=== PATIENT | female | born 1970 | race Caucasian/White ===

== ENCOUNTER 2016-06-29 14:42 | Emergency (ER) | payer OTHER ==
[2016-06-29 15:11] VITALS: BP 124/59
--- NOTE | 2016-06-29 15:58 | UC ---
Respiratory Complaint HPI - HPI Summary HPI Summary: The patient comes in today for: 1. Sore throat, cough, chest congestion, stuffy nose, Onset: 9 days ago. Palliative/provocative: Nothing. Quality: scratchy, raw. Region: posterior pharynx. Severity: 5/10 Time: cough comes and goes. Associated symptoms: Cough: Very little Yellow material. Wheezing: "little bit." Chest pain: ONly present with a cough. Dyspnea: Only with coughing or shortly thereafter. Nocturnal: sometimes. Rhinitis: "a little" dark yellow Frontal sinus pressure: Present. Fevers: No temperature taken. Inhalers: albuterol. * - History of Current Complaint Chief Complaint: UCGeneralIllness Stated Complaint: CONGESTION,SORE THROAT Time Seen by Provider: 06/29/16 15:52 Hx Obtained From: Patient - Allergies/Home Medications Allergies/Adverse Reactions: Allergies Allergy/AdvReac Type Severity Reaction Status Date / Time Bee Venom Allergy Severe Anaphylatic Verified 06/29/16 15:11 Shock Morphine Allergy Intermediate Nausea And Verified 06/29/16 15:11 Vomiting PMH/Surg Hx/FS Hx/Imm Hx Previously Healthy: No - Premarin s/p hyst. Endocrine History Of: Reports: Dyslipidemia Denies: Diabetes, Thyroid Disease, Hyperthyroidism, Hypothyroidism Cardiovascular History Of: Denies: Cardiac Disorders, Hypertension, Pacemaker/ICD, Myocardial Infarction , Congestive Heart Failure, Atrial Fibrillation, Deep Vein Thrombosis, Bleeding Disorders Respiratory History Of: Denies: COPD, Asthma, Bronchitis, Pneumonia, Pulmonary Embolism GI/ History Of: Denies: Gastroesophageal Reflux, Ulcer, Gastrointestinal Bleed, Gall Bladder Disease, Kidney Stones, Diverticulitis, Renal Disease, Urosepsis Neurological History Of: Reports: Migraine - LAST ONE A YR AGO Denies: TIA, CVA, Dementia, Seizures Psychological History Of: Denies: Anxiety, Depression, Bipolar Disorder, Schizophrenia, Post Traumatic Stress Disorder Cancer History Of: Denies: Lung Cancer, Colorectal Cancer, Breast Cancer, Cervical Cancer Other History Of: Negative For: HIV, Hepatitis B, Hepatitis C, Anticoagulant Therapy - Surgical History Surgical History: Yes Surgery Procedure, Year, and Place: Hysterectomy 2006; CYSTECTOMIES PRIOR TO HYSTERECTOMY; C SECTION; MANY FEMALE SURGERIES PRIOR TO HYSTERECTOMY09/15 LEFT FOOT TARSAL TUNNEL SURGERY; trial dorsal column stimulator - Family History Known Family History: Positive: Cardiac Disease, Hypertension, Diabetes - Social History Occupation: Unemployed, Disabled - RSD of the left leg. Alcohol Use: None Substance Use Type: None Substance Use Comment - Amount & Last Used: deborahco Smoking Status (MU): Former Smoker Type: Cigarettes Amount Used/How Often: 1 PACK/DAY Length of Time of Smoking/Using Tobacco: 25 YRS Have You Smoked in the Last Year: No When Did the Patient Quit Smoking/Using Tobacco: Oct Review of Systems Constitutional: Negative Skin: Negative Eyes: Negative ENT: Sore Throat, Nasal Discharge Respiratory: Cough Cardiovascular: Chest Pain Gastrointestinal: Negative Genitourinary: Negative All Other Systems Reviewed And Are Negative: Yes Physical Exam Triage Information Reviewed: Yes Appearance: Well-Appearing, No Pain Distress, Well-Nourished, Other: - She had a frequent dry cough during the exam--worse with a deep breath. Vital Signs: Initial Vital Signs Temp 97.9 F 06/29/16 15:07 Pulse 78 06/29/16 15:07 Resp 18 06/29/16 15:07 BP 124/59 06/29/16 15:07 Pulse Ox 100 06/29/16 15:07 Vital Signs Reviewed: Yes Eyes: Positive: Conjunctiva Clear. Negative: Discharge ENT: Positive: Hearing grossly normal. Negative: Pharyngeal erythema, Nasal congestion, Nasal drainage, TM bulging, TM dull, TM red, Tonsillar swelling, Tonsillar exudate Dental: Negative: Gross Decay/Caries @, Dental Fracture @ Neck: Positive: Supple, Nontender, No Lymphadenopathy. Negative: Nuchal Rigidity Respiratory: Positive: Lungs clear, No respiratory distress, No accessory muscle use. Negative: Crackles, Wheezing Cardiovascular: Positive: RRR, No Murmur Abdomen Description: Positive: Nontender, No Organomegaly, Soft. Negative: Distended, Guarding Musculoskeletal: Positive: Strength Intact, ROM Intact, No Edema Neurological: Positive: Alert, Muscle Tone Normal Psychological: Positive: Age Appropriate Behavior, Consolable Skin: Negative: rashes, breakdown UC Diagnostic Evaluation - Laboratory O2 Sat by Pulse Oximetry: 100 Diagnostic Studies Comment: Strept test: (-) Respiratory Course/Dx - Differential Dx/Diagnosis Differential Diagnosis/HQI/PQRI: Asthma, Bronchitis, Sinusitis Provider Diagnoses: Bronchitis. Sinusitis. Cough variant/post infectious cough Discharge - Discharge Plan Condition: Stable Disposition: HOME
== END 2016-06-29 17:38 | disposition home or self-care (01) ==
LOC: UCCORT 14:42
DX: J40 Bronchitis, not specified as acute or chronic (principal); J32.9 Chronic sinusitis, unspecified; Z88.5 Allergy status to narcotic agent; E78.5 Hyperlipidemia, unspecified; G43.909 Migraine, unspecified, not intractable, without status migrainosus; Z90.710 Acquired absence of both cervix and uterus; Z90.49 Acquired absence of other specified parts of digestive tract; Z87.891 Personal history of nicotine dependence
CPT/HCPCS: 87651; 99212; G0463

== ENCOUNTER 2017-06-30 15:45 | Emergency (ER) | payer OTHER ==
[2017-06-30 17:52] VITALS: BP 131/68
[2017-06-30] MEDS ORDERED: Ketorolac INJ* 60 MG/2 ML VIAL IM ONE (17:56)
--- NOTE | 2017-06-30 17:56 | UC ---
Headache HPI - HPI Summary HPI Summary: c/o head ache for 3 days sees a neurologist and usually takes ketorolac po but she is out of medicine - History Of Current Complaint Chief Complaint: Radha Stated Complaint: MIGRAINE FOR 3 DAYS Time Seen by Provider: 06/30/17 17:54 Hx Obtained From: Patient ?: Yes Onset/Duration: Gradual Onset, Lasting Days - 3 Pain Intensity: 10 Pain Scale Used: 0-10 Numeric Timing: Constant Character: Typical Headache, Migraine Location of Headache: Diffuse Aggravating Factor(s): Nothing Allevating Factor(s): Nothing Associated Signs And Symptoms: Positive: Negative - Allergies/Home Medications Allergies/Adverse Reactions: Allergies Allergy/AdvReac Type Severity Reaction Status Date / Time bee venom protein (honey bee) Allergy Severe Anaphylatic Verified 06/30/17 17:46 Shock morphine Allergy Intermediate Nausea And Verified 06/30/17 17:46 Vomiting PMH/Surg Hx/FS Hx/Imm Hx Neurological History: Migraine Other History Of: Negative For: HIV, Hepatitis B, Hepatitis C, Anticoagulant Therapy - Surgical History Surgical History: Yes Surgery Procedure, Year, and Place: Hysterectomy 2006; CYSTECTOMIES PRIOR TO HYSTERECTOMY; C SECTION; MANY FEMALE SURGERIES PRIOR TO HYSTERECTOMY09/15 LEFT FOOT TARSAL TUNNEL SURGERY; trial dorsal column stimulator - Family History Known Family History: Positive: Cardiac Disease, Hypertension, Diabetes - Social History Occupation: Disabled Lives: With Family Alcohol Use: None Substance Use Type: None Substance Use Comment - Amount & Last Used: stephanie Smoking Status (MU): Former Smoker Type: Cigarettes Amount Used/How Often: 1 PACK/DAY Length of Time of Smoking/Using Tobacco: 25 YRS Have You Smoked in the Last Year: No When Did the Patient Quit Smoking/Using Tobacco: Oct Review of Systems Constitutional: Negative Skin: Negative Eyes: Negative ENT: Negative Respiratory: Negative Cardiovascular: Negative Gastrointestinal: Negative Genitourinary: Negative Motor: Negative Neurovascular: Negative Musculoskeletal: Negative Neurological: Headache Psychological: Negative Is Patient Immunocompromised?: No All Other Systems Reviewed And Are Negative: Yes Physical Exam Triage Information Reviewed: Yes Appearance: Well-Appearing, Well-Nourished, Pain Distress Vital Signs: Initial Vital Signs Temp 98.4 F 06/30/17 17:41 Pulse 73 06/30/17 17:41 Resp 18 06/30/17 17:41 BP 131/68 06/30/17 17:41 Pulse Ox 99 06/30/17 17:41 Vital Signs Reviewed: Yes Eye Exam: Normal Eyes: Positive: Conjunctiva Clear ENT Exam: Normal ENT: Positive: Normal ENT inspection, Hearing grossly normal. Negative: Trismus , Muffled voice, Hoarse voice, Sinus tenderness Dental Exam: Normal Neck exam: Normal Neck: Positive: Supple, Nontender, No Lymphadenopathy Respiratory Exam: Normal Respiratory: Positive: Chest non-tender, No respiratory distress, No accessory muscle use Cardiovascular Exam: Normal Cardiovascular: Positive: RRR, Pulses Normal, Brisk Capillary Refill Musculoskeletal Exam: Normal Musculoskeletal: Positive: Strength Intact, ROM Intact, No Edema Neurological Exam: Normal Neurological: Positive: Alert, Muscle Tone Normal Psychological Exam: Normal Skin Exam: Normal Re-Evaluation - Re-Evaluation First Eval Change: Improved - felt better after tordal IM---symptoms resolved Headache Course/Dx - Course Course Of Treatment: toradol, rest follow with neurology and pcp - Differential Dx/Diagnosis Provider Diagnoses: resolved headache Discharge - Sign-Out/Discharge Documenting (check all that apply): Discharge/Admit/Transfer - Discharge Plan Condition: Stable Disposition: HOME Prescriptions: Ketorolac TAB * [Toradol TAB *] 10 mg PO Q8HR PRN #15 tab PRN Reason: Headache Patient Education Materials: Migraine Headache (ED) Referrals: Nicolás Rios NP [Primary Care Provider] - 07/03/17 - Billing Disposition and Condition Condition: STABLE Disposition: HOME
== END 2017-06-30 18:56 | disposition home or self-care (01) ==
LOC: UCCORT 15:45
DX: R51 Headache (principal); Z88.5 Allergy status to narcotic agent; Z87.891 Personal history of nicotine dependence
CPT/HCPCS: 96372; 99212; G0463; J1885

== ENCOUNTER 2018-07-07 11:39 | Emergency (ER) | payer OTHER ==
--- OUTSIDE RECORDS SUMMARY | 2018-07-07 11:46 | XMS REPORT | Continuity of Care Document ---
:1970 External Reference #:[id number] Author Name Nicolás Rios N.P. Address [address] [place] [address] Care Team Providers Name Role Phone Nicolás Rios N.P. Care Team Information Electrocardiograph Operator Unavailable Payers Date Identification Numbers Payment Provider Subscriber Policy Number: [id number] [employer] Number: [id number] [address] PayID: [id number] [place] [address] Advance Directives Description No Information Available Problems Active Problems Provider Date Hysterectomy Nicolás Rios, N.PShira Onset: 10/29/2014 Hypercholesterolemia Nicolás Rios, N.P. Onset: 05/18/2016 Sleep apnea Nicolás Rios, N.PShira Onset: 05/18/2016 Chronic back pain Nicolás Rios, N.P. Onset: 02/15/2017 Reflex sympathetic dystrophy of lower Nicolás Rios, N.P. Onset: 2016 extremity Migraine with typical aura Nicolás Rios, N.P. Onset: 07/03/2017 Hypothyroidism Nicolás Rios, N.P. Onset: 06/10/2018 Family History Date Family Member(s) Observation Comments Father Heart Disease triple bypass : (08/29/2013) Father due to [place] Mar 2013, age 71 Document: 08/29/13 - Short Exam-159 Mother Good Health First Son Good Health First Sister Migraine Headache Second Sister Good Health Social History Type Date Description Comments Sex Unknown Marital Status Lives With Son grandclinton (Litzy) Lives With Spouse Occupation fitness teacher Tobacco Use Start: Unknown End: Former Cigarette Smoker 2012 Unknown Tobacco Use Start: Unknown Patient has never smoked Allergies, Adverse Reactions, Alerts Active Allergies Reaction Severity Comments Date Morphine GI 04/02/2006 Medications Active Medications SIG Qnty Indications Ordering Provider Date Levothyroxine Sodium 1 by mouth 30tabs Nicolás Rios, 07/04/2018 50mcg every day N.P. Tablets Atorvastatin Calcium 1 by mouth 90tabs Nicolás Rios, 06/10/2018 10mg every day N.P. Tablets Premarin 1 by mouth 90tabs Nicolás Rios, 07/03/2017 0.625mg Tablets every day N.P. History Medications Levothyroxine Sodium take one tablet 30tabs Gabriel, 06/10/2018 - 25mcg by mouth every Nicolás, N.P. 07/04/2018 Tablets day on empty stomach Valacyclovir HCL 1 by mouth three 21tabs Gabriel, 01/08/2017 - 1gm Tablets times a day x 7 Masanupamale, N.P. 07/03/2017 days Meloxicam 1 by mouth twice 180tabs Gabriel, 08/18/2016 - 7.5mg Tablets a day Nicolás, N.P. 07/03/2017 Nucynta ER Gabriel, 08/18/2016 - 50mg Tablets ER 12HR Nicolás, N.P. 09/12/2016 Hydrochlorothiazide 1 by mouth every 30caps Gabriel, 08/18/2016 - 12.5mg day Nicolás, N.P. 07/03/2017 Capsules Pain Management referring to see Gabriel, 05/22/2016 - the TECHNOLOGY LAB TEACHER at the Nicolás, N.P. 07/03/2017 pain clinic in [place] for lower ext pain Atorvastatin Calcium 1 by mouth every 30tabs Gabriel, 05/18/2016 - 10mg day Nicolás, N.P. 07/03/2017 Tablets Premarin 1 by mouth every 90tabs Gabriel, 03/16/2016 - 0.45mg Tablets day Nicolás, N.P. 07/03/2017 Ketorolac Tromethamine 1 po qd prn as 20tabs Gabriel, 06/08/2015 - 10mg directed no more Nicolás, N.P. 03/16/2016 Tablets than 5 consecutive days Ibuprofen 1 by mouth four 40tabs Gabriel, 02/23/2015 - 800mg Tablets times a day with Nicolás, N.P. 03/16/2016 food Premarin 1 by mouth every 90tabs Gabriel, 10/29/2014 - 0.45mg Tablets day Mashelle, N.P. 03/16/2016 Zithromax Z-Elgin as directed 1tabs [facility], 01/05/2014 - 250mg Tablets Mashelle, N.P. 10/29/2014 Prednisone 1 po qd x 5 days 5tabs [facility], 04/08/2013 - 50mg Tablets Mashelle, N.P. 08/29/2013 Work Note return to [facility], 12/11/2011 - unrestricted work Oliviale, N.P. 02/13/2012 12/13/11 Tessalon 1 po tid prn 21caps [facility], 12/07/2011 - 200mg Capsules Mashelle, N.P. 02/13/2012 Albuterol Sulfate 1 via nebulizer 40jets [facility], 12/04/2011 - (2.5mg/3ML) qid Mashelle, N.P. 02/13/2012 0.083% Nebulizer Ipratropium [place] 1 vial qid 40un [facility], 12/04/2011 - 0.03% Mashelle, N.P. 02/13/2012 Solution Budesonide 2ml via nebulizer 30un Gabriel, 12/04/2011 - 0.5mg/2ML Suspension bid Mashelle, N.P. 02/13/2012 Prednisone 4 po x 3 days, 30ta [facility], 12/04/2011 - 10mg Tablets then 3 po x 3 Mashelle, N.P. 02/13/2012 days then 2 po x 3 days then 1 po x 3 days Cheratussin ac 1 teaspoon every 236ml [facility], 11/28/2011 - 100-10mg/5ML 4-6 h prn cough Masanupamale, N.P. 02/13/2012 Syrup Azithromycin 2 po day one then 6tabs [facility], 11/27/2011 - 250mg Tablets 1 po qd x 4 days Mashelle, N.P. 12/04/2011 Keflex 1 po qid x 7 days 28caps Gabriel, 01/17/2011 - 500mg Capsules Mashelle, N.P. 11/27/2011 Lidoderm apply as directed Gabriel, 01/17/2011 - 5% Patches Mashelle, N.P. 11/27/2011 Zovirax apply bid to 15gm [facility], 01/17/2011 - 5% Ointment sores Nicolás, N.P. 02/13/2012 Premarin 1 po qd 90tabs [facility], 11/21/2010 - 0.625mg Tablets Oliviale, N.P. 10/29/2014 Cheratussin ac 1 teaspoon every 236ml [facility], 11/21/2010 - 100-10mg/5ML 4-6 h prn cough Nicolás, N.P. 01/17/2011 Syrup Zithromax Z-Elgin as directed 1tabs Gabriel, 11/21/2010 - 250mg Tablets Nicolás, N.P. 01/17/2011 Premarin 1 po qd 90tabs [facility], 04/18/2010 - 0.3mg Tablets Nicolás, N.P. 11/21/2010 Flexeril 1 po tid 10tabs Gabriel, 04/18/2010 - 10mg Tablets Nicolás, N.P. 11/27/2011 Topamax 1 po bid 60tabs Gabriel, 04/13/2010 - 25mg Tablets Nicolás, N.P. 02/13/2012 Zofran Odt 1-2 tabs tid prn 12bs Gabriel, 04/13/2010 - 4mg Tablets Dispers nausea Nicolás, N.P. 04/27/2010 Ketorolac Tromethamine 1 po qd prn as 20tabs Gabriel, 04/13/2010 - 10mg directed no more Nicolás, N.P. 08/29/2013 Tablets than 5 consecutive days Work Note No work Gabriel, 04/13/2010 - 12/11/11-12/12/11 Nicolás, N.P. 02/13/2012 for medical reasons Avelox 1 po qd x 10 days samples Gabriel, 12/20/2009 - 400mg Tablets iNcolás, N.P. 04/13/2010 Tylenol With Codeine #3 1-2 po q 4-6 20tabs Gabriel, 04/15/2009 - hours prn pain Nicolás, N.P. 04/13/2010 300-30mg Tablets Zithromax Z-Elgin as directed 1tabs Gabriel, 04/14/2009 - 250mg Tablets Mashelle, N.P. 12/20/2009 Proventil HFA 2 puffs qid prn 1Inhaler Gabriel, 04/14/2009 - 108(90Base) shortness of Mascasimiro, N.P. 08/29/2013 mcg/ac Aerosol breath Guaifenesin-Codeine 1-2 teaspoons po 240ml Gabriel, 04/14/2009 - q 4-6 h prn cough Nicolás, N.P. 04/15/2009 100-10mg/5ML Liquid Prednisone 2 po qd x 3 days 6tabs Gabriel, 04/14/2009 - 20mg Tablets Masanupamale, N.P. 04/13/2010 Work Note no work 466.0 Gabriel, 04/14/2009 - 12/20/09-12/22/09 Nicolás, N.P. 04/13/2010 for medical reasons Avelox 1 po qd x 10 days samples Gabriel, 05/22/2008 - 400mg Tablets Oliviale, N.P. 04/14/2009 Respiratory cpap w/heated Gabriel, 01/20/2008 - humidifier at 7cm Nicolás, N.P. 04/14/2009 with mask and supplies dx: sleep apnea Premarin 1 po qd 90tabs Gabriel, 01/13/2008 - 0.625mg Tablets Paulhelle, N.P. 04/18/2010 Zithromax Z-Elgin as directed 1Ppapito Rios, 05/20/2007 - 250mg Tablets Oliviale, N.P. 05/22/2008 Nuclear Stress W/ IV dx- chest pain Gabriel, 03/25/2007 - Contrast Masanupamale, N.P. 04/14/2009 Phentermine HCL 1 po q am 30caps Gabriel, 06/28/2006 - 30mg Capsules Mashelle, N.P. 04/08/2013 Indomethacin 1-2 tid with food 30caps Gabriel, 06/22/2006 - 25mg Capsules tid Masanupamale, N.P. 04/14/2009 Radiology xray L foot Trabout, 06/21/2006 - MD Robel 03/25/2007 dx: pain Zithromax Z-Elgin as directed 1Ppapito Rios, 04/02/2006 - 250mg Tablets Nicolás, N.P. 06/21/2006 Duratuss GP 1 PO Q 12 H 24tabs Gabriel, 04/02/2006 - 1200mg;120 mg Nicolás, N.P. 10/08/2006 Tablets Ibuprofen 1 po tid prn with 60tabs Gabriel, 04/02/2006 - 800mg Tablets food Nicolás, N.P. 10/08/2006 Lyrica 1 by mouth three Unknown - 100mg Capsules times a day code 03/16/2016 d Lyrica 1 po tid Unknown - 25mg Capsules 07/03/2017 Amitriptyline HCL 1 po q hs Unknown - 10mg Tablets 03/26/2018 Acetaminophen-Codeine #3 1-2 every 4-6h as Unknown - needed for severe 03/26/2018 300-30mg Tablets pain Amitriptyline HCL take one tablet Unknown - 25mg Tablets by mouth at 06/10/2018 bedtime Medications Administered in Office Medication SIG Qnty Indications Ordering Provider Date Torodol Injection 15 MG Dose Nicolás Rios, N.P. 04/18/2010 Injection Torodol Injection 15 MG Dose Nicolás Rios, N.P. 04/13/2010 Injection Immunizations CPT Code Status Date Vaccine Lot # [id number] Refused 03/18/2018 Influenza Vac, Quadrivalent, Split, 0.5mL Dosage, Im Use Vital Signs Date Vital Result Comment 07/04/2018 10:29am Body Temperature 97.3 F Weight 250.38 lb Heart Rate 62 /min BP Systolic 110 mmHg BP Diastolic 72 mmHg O2 % BldC Oximetry 97 % 06/10/2018 9:59am Body Temperature 97.5 F Weight 251.00 lb Heart Rate 71 /min BP Systolic 120 mmHg BP Diastolic 68 mmHg Height 63 inches 5'3" O2 % BldC Oximetry 98 % BMI (Body Mass Index) 44.5 kg/m2 03/26/2018 10:44am Body Temperature 97.5 F Weight 250.38 lb Heart Rate 71 /min BP Systolic 110 mmHg BP Diastolic 68 mmHg O2 % BldC Oximetry 97 % 03/18/2018 1:49pm Body Temperature 97.9 F Weight 251.12 lb Heart Rate 67 /min BP Systolic 116 mmHg BP Diastolic 68 mmHg O2 % BldC Oximetry 98 % 07/03/2017 10:02am Body Temperature 97.5 F Weight 238.00 lb Heart Rate 77 /min BP Systolic 121 mmHg BP Diastolic 79 mmHg O2 % BldC Oximetry 97 % 02/15/2017 11:05am Body Temperature 97.7 F Heart Rate 66 /min BP Systolic 129 mmHg BP Diastolic 89 mmHg O2 % BldC Oximetry 98 % 01/08/2017 11:24am Body Temperature 97.9 F Weight 245.12 lb Heart Rate 76 /min BP Systolic 129 mmHg BP Diastolic 87 mmHg O2 % BldC Oximetry 97 % 09/12/2016 10:38am Body Temperature 97.0 F Heart Rate 100 /min BP Systolic 124 mmHg BP Diastolic 73 mmHg O2 % BldC Oximetry 97 % 08/18/2016 11:06am Body Temperature 97.3 F Heart Rate 82 /min BP Systolic 126 mmHg BP Diastolic 65 mmHg O2 % BldC Oximetry 97 % 06/13/2016 10:24am Body Temperature 97.7 F Heart Rate 74 /min BP Systolic 116 mmHg BP Diastolic 52 mmHg O2 % BldC Oximetry 96 % 05/18/2016 10:31am Body Temperature 97.0 F Weight 240.00 lb Uto Has Boot On. States Heart Rate 94 /min BP Systolic 129 mmHg BP Diastolic 75 mmHg Height 63 inches 5'3" O2 % BldC Oximetry 94 % BMI (Body Mass Index) 42.5 kg/m2 03/16/2016 9:52am Body Temperature 97.2 F Weight 242.00 lb Heart Rate 92 /min BP Systolic 135 mmHg BP Diastolic 78 mmHg O2 % BldC Oximetry 98 % 10/29/2014 11:18am Body Temperature 97.9 F Heart Rate 85 /min BP Systolic 119 mmHg BP Diastolic 73 mmHg O2 % BldC Oximetry 98 % 08/29/2013 8:57am Body Temperature 98.1 F Weight 214.00 lb Heart Rate 61 /min BP Systolic 98 mmHg BP Diastolic 60 mmHg O2 % BldC Oximetry 97 % 04/08/2013 3:27pm Body Temperature 97.7 F Weight 216.00 lb Heart Rate 66 /min BP Systolic 110 mmHg BP Diastolic 80 mmHg O2 % BldC Oximetry 98 % 02/13/2012 4:28pm Body Temperature 98.2 F Weight 203.25 lb Heart Rate 82 /min BP Systolic 110 mmHg BP Diastolic 80 mmHg O2 % BldC Oximetry 99 % 12/11/2011 11:41am Body Temperature 97.8 F Weight 199.50 lb Heart Rate 69 /min BP Systolic 112 mmHg BP Diastolic 62 mmHg O2 % BldC Oximetry 96 % 12/07/2011 9:48am Body Temperature 98.0 F Weight 194.50 lb Heart Rate 88 /min BP Systolic 104 mmHg BP Diastolic 60 mmHg O2 % BldC Oximetry 98 % 12/04/2011 9:16am Body Temperature 98.5 F Weight 198.38 lb Heart Rate 72 /min BP Systolic 142 mmHg BP Diastolic 74 mmHg O2 % BldC Oximetry 94 % 11/27/2011 10:10am Body Temperature 98.2 F Weight 200.00 lb Heart Rate 76 /min BP Systolic 112 mmHg BP Diastolic 72 mmHg O2 % BldC Oximetry 98 % 01/17/2011 10:46am Body Temperature 97.6 F Weight 189.00 lb Heart Rate 58 /min BP Systolic 110 mmHg BP Diastolic 70 mmHg O2 % BldC Oximetry 98 % 11/21/2010 10:45am Body Temperature 98.7 F Weight 182.00 lb Heart Rate 82 /min BP Systolic 102 mmHg BP Diastolic 62 mmHg O2 % BldC Oximetry 97 % 04/27/2010 1:06pm Weight 189.00 lb Heart Rate 62 /min BP Systolic 98 mmHg BP Diastolic 60 mmHg O2 % BldC Oximetry 99 % 04/18/2010 10:53am Body Temperature 98.5 F Weight 185.00 lb Heart Rate 98 /min BP Systolic 90 mmHg BP Diastolic 60 mmHg O2 % BldC Oximetry 98 % 04/13/2010 1:00pm Weight 193.50 lb Heart Rate 65 /min BP Systolic 98 mmHg BP Diastolic 60 mmHg O2 % BldC Oximetry 98 % 12/20/2009 1:05pm Body Temperature 98.4 F Weight 188.00 lb Heart Rate 82 /min BP Systolic 108 mmHg BP Diastolic 66 mmHg O2 % BldC Oximetry 96 % 04/14/2009 1:17pm Body Temperature 98.3 F Weight 180.00 lb Heart Rate 83 /min BP Systolic 110 mmHg BP Diastolic 76 mmHg Height 62.50 inches 5'2.50" O2 % BldC Oximetry 98 % BMI (Body Mass Index) 32.4 kg/m2 05/22/2008 11:52am Body Temperature 98.5 F Weight 200.00 lb Heart Rate 80 /min BP Systolic 130 mmHg BP Diastolic 78 mmHg O2 % BldC Oximetry 98 % 11/01/2007 10:26am Body Temperature 98.4 F Weight 191.00 lb Heart Rate 64 /min BP Systolic 115 mmHg BP Diastolic 68 mmHg Height 62.5 inches 5'2.50" BMI (Body Mass Index) 34.4 kg/m2 05/20/2007 1:30pm Body Temperature 98.2 F Weight 184.00 lb Heart Rate 80 /min BP Systolic 110 mmHg BP Diastolic 65 mmHg Height 62.5 inches 5'2.50" BMI (Body Mass Index) 33.1 kg/m2 10/08/2006 2:45pm Body Temperature 98.6 F Weight 190.00 lb Heart Rate 64 /min BP Systolic 120 mmHg BP Diastolic 70 mmHg Height 62.5 inches 5'2.50" BMI (Body Mass Index) 34.2 kg/m2 06/28/2006 3:14pm Body Temperature 98.4 F Weight 192.00 lb Heart Rate 76 /min BP Systolic 114 mmHg BP Diastolic 66 mmHg Height 62.5 inches 5'2.50" BMI (Body Mass Index) 34.6 kg/m2 04/02/2006 3:17pm Body Temperature 99.2 F Weight 193.00 lb Heart Rate 84 /min BP Systolic 120 mmHg BP Diastolic 70 mmHg Height 62.5 inches 5'2.50" BMI (Body Mass Index) 34.7 kg/m2 Results Test Date Facility Test Result H/L Range Note [facility] A1[facility] 5.7 % 4.1-5.9 1 Estimated Average Glucose Calc 117 mg/dL 71-140 Laboratory test finding 07/02/2018 [facility] TSH 5.10 uIU/mL High 0.35- 4.94 Lipid Treatment 07/02/2018 [facility] Cholesterol 208 mg/dL High 50-199 Triglycerides 169 mg/dL 30-200 HDL 49 mg/dL 35-85 2 Chol/ HDL Ratio 4.3 ratio 3.7-5.6 VLDL 34 mg/dL High 2-29 LDL (Calc) 126 mg/dL High 20-99 3 Alt 11 U/L 3-42 Ast 13 U/L 8-42 Comprehensive Met Panel-[facility] 06/07/2018 [facility] Sodium 143 mmol/L 135- 146 4 Potassium 5.7 mmol/L High 3.5-5.2 Chloride# 104 mmol/L 97-110 5 Carbon Dioxide 30 mmol/L 24-34 Glucose 110 mg/dL High 70-105 BUN 13 mg/dL 6-26 Creatinine 0.7 mg/dL 0.5-1.4 Calcium 10.1 mg/dL 8.5-10.2 Total Protein 6.9 g/dL 6.0-8.0 Albumin 4.6 g/dL 3.6-4.9 Globulin 2.3 g/dL 2.0-3.5 A/G Ratio 2.0 Ratio 1.0-2.2 Total Bilirubin 0.3 mg/dL 0.1-1.3 Alkaline Phosphatase 51 U/L 24-140 Alt 13 U/L 3-42 Ast 14 U/L 8-42 Anion Gap 9 mmol/L 5-15 6 Daniella Egfr >60 >60 7 Non Daniella Egfr >60 >60 8 Lipid 06/07/2018 [facility] Cholesterol 301 mg/dL High 50-199 Triglycerides 211 mg/dL High 30-200 HDL 52 mg/dL 35-85 9 Chol/ HDL Ratio 5.8 ratio High 3.7-5.6 VLDL 42 mg/dL High 2-29 LDL (Calc) 207 mg/dL High 20-99 10 Laboratory test finding 06/07/2018 [facility] TSH 5.57 uIU/mL High 0.35- 4.94 Laboratory test finding 09/12/2016 [facility] TSH 3.73 uIU/mL 0.35-4.94 11 Lipid Treatment 09/12/2016 [facility] Cholesterol 321 mg/dL High 50-199 Triglycerides 189 mg/dL 30-200 HDL 52 mg/dL 35-85 12 Chol/ HDL Ratio 6.2 ratio High 3.7-5.6 VLDL 38 mg/dL High 2-29 LDL (Calc) 231 mg/dL High 20-99 13 Alt 28 U/L 3-42 Ast 23 U/L 8-42 Laboratory test finding 06/13/2016 [facility] TSH 3.07 uIU/mL 0.35-4.94 14 #F# Thyroxine (Total T4) <pending> Free T4 0.78 ng/dL 0.70-1.48 Lipid Treatment 06/13/2016 [facility] Cholesterol 207 mg/dL High 50-199 Triglycerides 176 mg/dL 30-200 HDL 49 mg/dL 35-85 15 Chol/ HDL Ratio 4.3 ratio 3.7-5.6 VLDL 35 mg/dL High 2-29 LDL (Calc) 123 mg/dL High 20-99 16 Alt 14 U/L 3-42 Ast 15 U/L 8-42 Laboratory test finding 05/18/2016 [facility] Hemoglobin A1c 5.6 % 4.1-5.9 17 TSH 4.39 uIU/mL 0.35-4.94 Laboratory test 12/07/2011 [facility] Urine Culture Microbiology res 18 finding <SEE NOTE> Order 04/18/2010 [facility] EKG <pending> (315)- - CMP 04/18/2010 [facility] (Do not Use) Sodium 142 mmol/L 135-1 19 [facility] [address] [place] [id number] [phone] Potassium 4.8 mmol/L 3.6-5.2 Chloride 103 mmol/L 97-110 Carbon Dioxide 26 mmol/L 23-32 Glucose 89 mg/dL 70-105 BUN 12 mg/dL 6-22 Creatinine 0.7 mg/dL 0.5-1.3 BUN/CR 17 Ratio Calcium 10.1 mg/dL 8.6-10.2 Total Protein 7.8 g/dL 5.8-7.8 Albumin 4.6 g/dL 3.5-4.8 Globulin 3.2 g/dL 2.0-3.5 A/G Ratio 1.4 Ratio 1.0-2.2 Total Bilirubin 0.5 mg/dL 0.3-1.2 Alkaline Phosphatase 58 U/L 24-140 Alt 12 U/L 5-45 Ast 16 U/L 12-40 Anion Gap 18 mmol/L High 8-16 GFR Calculation > 60 mL/min 60-175 20 GFR For > 60 mL/min 60-175 21 Laboratory test 04/18/2010 [facility] (Do not Use) TSH 3.27 uIU/ml 0.34 -5.60 finding [facility] [place] [address] [phone] CBC With Auto Diff 04/18/2010 [facility] (Do not Use) WBC 8.6 K/ul 4.0- 10.9 [facility] [place] [place] [address] [phone] RBC 4.47 M/ul 4.20-5.40 Hemoglobin 14.5 GM/dl 12.5-16.0 Hematocrit 42.7 % 36.0-47.0 MCV 95.5 FL 80.0-97.0 MCH 32.5 pg High 27.0-31.0 MCHC 34.0 g/dL 32.0-36.0 RDW 12.9 % 11.5-14.5 Platelet Count 305 K/ul 140-440 Neutrophils 51.7 % 50-70 Lymphocytes 40.4 % 20-44 Monocytes 6.3 % 2-9 Eosinophil 1.1 % 0-4 Basophil 0.5 % 0-2 Absolute Neutrophils 4.4 K/ul 2.05-7.63 Absolute Lymphocytes 3.5 K/ul 0.8-4.8 Absolute Monocytes 0.5 K/ul 0.1-1.0 Absolute Eosinophils 0.1 K/ul 0.1-0.5 Absolute Basophils 0.0 K/ul 0.0-0.3 Hematology Comment (Comm2) N/A Laboratory test 11/01/2007 [facility] (Do not Use) TSH 3.01 uIU/ml 0.34 -5.60 finding [facility] [place] [address] [phone] CBC With Auto Diff 11/01/2007 [facility] (Do not Use) WBC 6.7 K/ul 4.0- 10.9 [facility] [place] [address] [phone] RBC 3.60 M/ul Low 4.20-5.40 Hemoglobin 11.7 GM/dl Low 12.5-16.0 Hematocrit 33.5 % Low 36.0-47.0 MCV 93.0 FL 80.0-97.0 MCH 32.4 pg High 27.0-31.0 MCHC 34.9 g/dL 32.0-36.0 RDW 12.1 % 11.5-14.5 Platelet Count 220 K/ul 140-440 Neutrophils 52.9 % 50-70 Lymphocytes 38.7 % 20-44 Monocytes 6.3 % 2-9 Eosinophil 1.6 % 0-4 Basophil 0.5 % 0-2 Absolute Neutrophils 3.5 K/ul 2.05-7.63 Absolute Lymphocytes 2.6 K/ul 0.8-4.8 Absolute Monocytes 0.4 K/ul 0.1-1.0 Absolute Eosinophils 0.1 K/ul 0.1-0.5 Absolute Basophils 0.0 K/ul 0.0-0.3 Laboratory test 06/21/2006 [facility] (Do not Use) Uric Acid 4.0 mg/dL Low 4.8-8.7 finding [facility] [place] [address] [phone] CBC With Auto Diff 06/21/2006 [facility] (Do not Use) WBC 7.1 K/ul 4.0- 10.9 [facility] [place] [address] [phone] RBC 3.97 M/ul Low 4.70-6.10 Hemoglobin 12.7 GM/dl Low 13.5-18.0 Hematocrit 37.4 % Low 42.0-52.0 MCV 94.2 FL 80.0-97.0 MCH 32.0 pg High 27.0-31.0 MCHC 34.0 g/dL 32.0-36.0 RDW 12.0 % 11.5-14.5 Platelet Count 363 K/ul 140-440 Neutrophils 48.2 % Low 50-70 Lymphocytes 41.2 % 20-44 Monocytes 7.5 % 2-9 Eosinophil 2.2 % 0-4 Basophil 0.9 % 0-2 Absolute Neutrophils 3.4 K/ul 2.05-7.63 Absolute Lymphocytes 2.9 K/ul 0.8-4.8 Absolute Monocytes 0.5 K/ul 0.1-1.0 Absolute Eosinophils 0.2 K/ul 0.1-0.5 Absolute Basophils 0.1 K/ul 0.1-0.3 1 This sample is drawn by:DL/CREDIT CARD CLERK 2 Per NCEP ATP III Guidelines: Results lower than 40 mg/dL are suggestive of increased risk for coronary artery disease. Results > or=to 60 mg/dL are considered a negative risk factor. 3 Per NCEP ATP III Guidelines: Normal Population <130 Patients with medical conditions: CHD/DM Optimal: <100 Borderline high: 130-159 High: 160-189 Very high: >189 4 Updated reference range on new analyzer 5 Updated reference range on new analyzer 6 Updated Reference Range 7 Concerning GFR Guidelines for Americans: Normal function or mild renal disease, if clinically at risk: >/=60 mL/min Moderately decreased: 30-59 Severely decreased: 15-29 Renal failure: <15 8 Concerning GFR Guidelines: Normal function or mild renal disease, if clinically at risk: >/=60 mL/min Moderately decreased: 30-59 Severely decreased: 15-29 Renal failure: <15 Glomerular Filtration Rate (GFR) is estimated based on the MDRD equation, which assumes a steady state for creatinine as recommended by the National Kidney Disease Education Program in conjunction with the National Institutes of Health and the National Kidney Foundation. Clinical conditions in which it may be necessary to measure GFR by using clearance methods include extremes of age and body size, severe malnutrition or obesity, diseases of skeletal muscle, paraplegia or quadriplegia, vegetarian diet, rapidly changing kidney function, and calculation of the dose of potentially toxic drugs that are excreted by the kidneys. 9 Per NCEP ATP III Guidelines: Results lower than 40 mg/dL are suggestive of increased risk for coronary artery disease. Results > or=to 60 mg/dL are considered a negative risk factor. 10 Per NCEP ATP III Guidelines: Normal Population <130 Patients with medical conditions: CHD/DM Optimal: <100 Borderline high: 130-159 High: 160-189 Very high: >189 11 This sample is drawn by:HUNTER/CREDIT CARD CLERK 12 Per NCEP ATP III Guidelines: Results lower than 40 mg/dL are suggestive of increased risk for coronary artery disease. Results > or=to 60 mg/dL are considered a negative risk factor. 13 Per NCEP ATP III Guidelines: Normal Population <130 Patients with medical conditions: CHD/DM Optimal: <100 Borderline high: 130-159 High: 160-189 Very high: >189 14 This sample is drawn by:KD/ENOLOGIST 15 Per NCEP ATP III Guidelines: Results lower than 40 mg/dL are suggestive of increased risk for coronary artery disease. Results > or=to 60 mg/dL are considered a negative risk factor. 16 Per NCEP ATP III Guidelines: Normal Population <130 Patients with medical conditions: CHD/DM Optimal: <100 Borderline high: 130-159 High: 160-189 Very high: >189 17 This sample is drawn by:HUNTER/CREDIT CARD CLERK 18 Microbiology results [facility] FINAL RESULT No growth 19 This sample is drawn by: LP 20 Concerning GFR GUIDELINES: Normal Function or Mild Renal Disease, if clinically at risk: >/=60mL/min Moderately decreased: 30-59 Severely decreased: 15-29 Renal Failure: <15 Glomerular Filtration Rate (GFR) is estimated based on the MDRD equation, which assumes a steady state for creatinine as recommended by the National Kidney Disease Education Program in conjunction with the National Institutes of Health and the National Kidney Foundation. Clinical conditions in which it may be necessary to measure GFR by using clearance methods include extremes of age and body size, severe malnutrition or obesity, diseases of skeletal muscle, paraplegia or quadriplegia, vegetarian diet, rapidly changing kidney function, and calculation of the dose of potentially toxic drugs that are excreted by the kidneys. 21 Concerning GFR GUIDELINES: Normal Function or Mild Renal Disease, if clinically at risk: >/=60mL/min Moderately decreased: 30-59 Severely decreased: 15-29 Renal Failure: <15 Procedures Date Code Description Status 03/31/2016 [id number] Mammogram Completed 08/29/2013 40897 Electrocardiogram Complete Completed 12/11/2011 44140 Measure Blood Oxygen Level Single Determination Completed 12/07/2011 74715 Measure Blood Oxygen Level Single Determination Completed 12/04/2011 04038 Measure Blood Oxygen Level Single Determination Completed 12/04/2011 87058 Airway Inhalation Treatment Completed 11/27/2011 04765 Measure Blood Oxygen Level Single Determination Completed 11/21/2010 72272 Measure Blood Oxygen Level Single Determination Completed 04/18/2010 11791 Admin Of Inj (Therapeutic Phrophylactic Or Diagnostic Completed Subq Inj 04/18/2010 87003 Electrocardiogram Complete Completed 04/13/2010 08360 Admin Of Inj (Therapeutic Phrophylactic Or Diagnostic Completed Subq Inj 12/20/2009 92959 Measure Blood Oxygen Level Single Determination Completed 04/14/2009 17900 Measure Blood Oxygen Level Single Determination Completed 05/22/2008 41346 Measure Blood Oxygen Level Single Determination Completed Encounters Type Date Location Provider Dx Diagnosis Office Visit 06/10/2018 Nicolás Ramirez, E03.9 Hypothyroidism, 10:00a N.P. unspecified E78.00 Pure hypercholesterolemia, unspecified R79.9 Abnormal finding of blood chemistry, unspecified Z00.01 Encounter for general adult medical exam w abnormal findings Z13.31 Encounter for screening for depression E66.01 Morbid (severe) obesity due to excess calories Z68.41 Body mass index (BMI) 40.0-44.9, adult Office Visit 03/26/2018 10:30a Nicolás Ramirez, M79.662 Pain in LEFT lower N.P. leg Office Visit 03/18/2018 1:45p Nicolás Ramirez, N95.1 Menopausal and N.P. female climacteric states M54.41 Lumbago with sciatica, RIGHT side Z28.21 Immunization not carried out because of patient refusal Office Visit 07/03/2017 10:00a Nicolás Ramirez, N95.1 Menopausal and female N.P. climacteric states G43.119 Migraine with aura, intractable, without status migrainosus Office Visit 02/15/2017 11:00a Nicolás Ramirez, M54.41 Lumbago with N.P. sciatica, RIGHT side Office Visit 01/08/2017 11:15a Nicolás Ramirez, B02.9 Zoster without N.P. complications Office Visit 09/12/2016 10:30a Nicolás Ramirez, R60.9 Edema, unspecified N.P. E78.00 Pure hypercholesterolemia, unspecified R53.83 Other fatigue Office Visit 08/18/2016 11:00a Nicolás Ramirez, R60.9 Edema, unspecified N.P. Office Visit 06/13/2016 10:30a Nicolás Ramirez, E78.00 Pure N.P. hypercholesterolemia , unspecified R53.83 Other fatigue Office Visit 05/18/2016 10:30a Nicolás Ramirez, R79.9 Abnormal finding of N.P. blood chemistry, unspecified G47.39 Other sleep apnea R53.83 Other fatigue E66.8 Other obesity E78.00 Pure hypercholesterolemia, unspecified Office Visit 03/16/2016 9:45a Nicolás Ramirez, N95.1 Menopausal and female N.P. climacteric states Office Visit 10/29/2014 11:00a Nicolás Ramirez, 627.2 Menopausal Or Female N.P. Climacteric State, Symptomatic Office Visit 08/29/2013 8:45a Nicolás Ramirez, V72.83 Examination N.P. Preoperative Other Spec Office Visit 04/08/2013 3:30p Nicolás Ramirez, 719.47 Pain Joint Ankle & N.P. Foot Office Visit 02/13/2012 4:15p Nicolás Ramirez, 346.00 Migraine Classical N.P. W/O Intractable 305.1 Tobacco Use Disorder 278.00 Obesity Unspec Office Visit 12/11/2011 11:30a Nicolás Ramirez, N.P. 466.0 Bronchitis Acute 496 COPD Airway Obstruction Chronic Not Class Elsewhere Office Visit 12/07/2011 9:45a Nicolás Ramirez, N.P. 466.0 Bronchitis Acute 496 COPD Airway Obstruction Chronic Not Class Elsewhere 599.70 Hematuria, Unspecified 786.2 Cough 788.1 Dysuria Office Visit 12/04/2011 9:30a Nicolás Ramirez, N.P. 466.0 Bronchitis Acute 519.11 Acute Bronchospasm 496 COPD Airway Obstruction Chronic Not Class Elsewhere Office Visit 11/27/2011 10:00a Nicolás Ramirez, N.P. 611.71 Mastodynia 466.0 Bronchitis Acute 786.2 Cough Office Visit 01/17/2011 10:45a Nicolás Ramirez, 053.9 Herpes Zoster W/O N.P. Complication 682.8 Cellulitis & Abscess Other Spec Sites Office Visit 11/21/2010 10:45a Nicolás Ramirez, 466.0 Bronchitis Acute N.P. Office Visit 04/27/2010 1:00p Nicolás Ramirez, 346.01 Migraine Classical N.P. W/ Intractable Office Visit 04/18/2010 10:30a Nicolás Ramirez, 346.01 Migraine Classical N.P. W/ Intractable 789.9 Abdomen & Pelvis Symptoms Other 786.59 Pain Chest Other 780.4 Dizziness & Giddiness Office Visit 04/13/2010 12:45p Nicolás Ramirez, 346.00 Migraine Classical N.P. W/O Intractable Office Visit 12/20/2009 1:15p Nicolás Ramirez, 466.0 Bronchitis Acute N.P. Office Visit 04/14/2009 1:00p Nicolás Ramirez, 486 Pneumonia Organism N.P. Unspec Office Visit 05/22/2008 11:45a Nicolás Ramirez, 461.0 Sinusitis Acute N.P. Maxillary 465.8 Upper Respiratory Infections Acute Other Multiple Sites Office Visit 11/01/2007 10:15a Nicolás Ramirez, 307.49 Sleep Disorder N.P. Other 780.79 Malaise And Fatigue Other Office Visit 05/20/2007 1:30p Nicolás Ramirez, 465.8 Upper Respiratory N.P. Infections Acute Other Multiple Sites Office Visit 10/08/2006 2:30p Nicolás Ramirez, 617.9 Endometriosis Site N.P. Unspec Office Visit 06/28/2006 3:10p Robel Vaughan, 278.00 Obesity Unspec MD Office Visit 06/21/2006 2:10p Robel Vaughan, 719.47 Pain Joint Ankle & MD Foot Office Visit 04/02/2006 3:00p Nicolás Ramirez, 465.8 Upper Respiratory N.P. Infections Acute Other Multiple Sites Plan of Treatment Future Appointment(s):07/26/2018 7:45 am - Nurses Schedule [place] [id number] - Nicolás Rios, N.P.E03.9 Hypothyroidism, fqneoiameoxU33.00 Pure hypercholesterolemia, unspecifiedComments:f/u labs, follow low chol dietstable on [facility] same and limit chol in dietR79.9 Abnormal finding of blood chemistry, tiezntwbvvkN79.01 Encounter for general adult medical exam w abnormal findingsComments:health promotion discussed at length including exercise,proper nutrition, sleep hygiene, adequate fluid intake, stress relief, safety and routine health sceening including skin, testicular/breast, and routine office PE's.Z13.31 Encounter for screening for depressionComments: denies increased feelings depression/anxiety at this timeE66.01 Morbid (severe) obesity due to excess caloriesComments:risks of obesity and importance of diet and exercise reviewed with patient, encouraged to reduce caloric intake and start with gradual walking iojsmkexhE12.41 Body mass index (BMI) 40.0-44.9, adultComments:5A's for Obesity Counseling1. ASSESS: Patient presents with a BMI of 44.5, would like to discuss weight loss options.2. ADVISE: Discussed superintendent [employer] complications of obesity in particular increased riskfor development of diabetes and heat disease as well as the many health benefits that come with a healthy BMI.3. AGREE: Goal is 1 pound or better per week weight loss. The patient understands and agrees to the plan outlined today.4. ASSIST: Reduce caloric intake, reduce proportion of carbohydrates indiet, establish daily exercise pattern, keep food log.5. ARRANGE: Follow up scheduled in _3 mo___ toassess and adjust treatment plan if needed.Time spent counseling the patient on obesity is 15 minutes. Obesity Screening Completed (G0447)AllNew Medication: Atorvastatin Calcium 10 mg - 1 by mouth every dayLevothyroxine Sodium 25 mcg - take one tablet by mouth every day on empty stomach
[2018-07-07 12:01] VITALS: BP 126/65
--- NOTE | 2018-07-07 12:25 | UC ---
"Lower Extremity/Ankle HPI - HPI Summary HPI Summary: Pt presents with c/o right lateral foot pain. Just distal to lateral malleolus. Denies injury. Pt has history of RSD and states pain is worse with weight bearing. - History of Current Complaint Chief Complaint: UCLowerExtremity Stated Complaint: RIGHT FOOT PAIN Time Seen by Provider: 07/07/18 11:53 Hx Obtained From: Patient ?: No Onset/Duration: Gradual Onset, Lasting Days, Still Present, Worse Since - onset Severity Initially: Mild Severity Currently: Moderate Pain Intensity: 8 Aggravating Factor(s): Standing, Ambulation Alleviating Factor(s): Rest Able to Bear Weight: Yes - painful - Risk Factors Gout Risk Factors: Age Over 40, Obesity DVT Risk Factors: Negative Septic Arthritis Risk Factor: Negative - Allergies/Home Medications Allergies/Adverse Reactions: Allergies Allergy/AdvReac Type Severity Reaction Status Date / Time bee venom protein (honey bee) Allergy Severe Anaphylatic Verified 07/07/18 11:52 Shock morphine Allergy Intermediate Nausea And Verified 07/07/18 11:52 Vomiting Home Medications: Home Medications Hydrocodone/Acetaminophen [Hydrocodone/Acetaminophen 5-325 mg] 1 - 2 tab PO Q4H PRN 07/07/18 [History Confirmed 07/07/18] PMH/Surg Hx/FS Hx/Imm Hx Previously Healthy: Yes - RSD Other History Of: Negative For: HIV, Hepatitis B, Hepatitis C, Anticoagulant Therapy - Surgical History Surgical History: Yes Surgery Procedure, Year, and Place: Hysterectomy 2006; CYSTECTOMIES PRIOR TO HYSTERECTOMY; C SECTION; MANY FEMALE SURGERIES PRIOR TO HYSTERECTOMY09/15 LEFT FOOT TARSAL TUNNEL SURGERY; trial dorsal column stimulator - Family History Known Family History: Positive: Cardiac Disease, Hypertension, Diabetes - Social History Occupation: Disabled Lives: With Family Alcohol Use: None Substance Use Type: None Substance Use Comment - Amount & Last Used: hydrocodone Smoking Status (MU): Former Smoker Type: Cigarettes Amount Used/How Often: 1 PACK/DAY Length of Time of Smoking/Using Tobacco: 25 YRS Have You Smoked in the Last Year: No When Did the Patient Quit Smoking/Using Tobacco: Oct - Immunization History Vaccination Up to Date: Yes Review of Systems All Other Systems Reviewed And Are Negative: Yes Constitutional: Positive: Negative Skin: Positive: Negative Eyes: Positive: Negative ENT: Positive: Negative Respiratory: Positive: Negative Cardiovascular: Positive: Negative Gastrointestinal: Positive: Negative, Abdominal Pain Motor: Positive: Decreased ROM - right foot Neurovascular: Positive: Negative Musculoskeletal: Positive: Arthralgia - right foot, Decreased ROM - right foot, Myalgia - right foot Neurological: Positive: Negative Psychological: Positive: Negative Is Patient Immunocompromised?: No Physical Exam Triage Information Reviewed: Yes Appearance: Well-Appearing, Obese Vital Signs: Initial Vital Signs Temp 97.9 F 07/07/18 11:54 Pulse 67 07/07/18 11:54 Resp 18 07/07/18 11:54 BP 126/65 07/07/18 11:54 Pulse Ox 99 07/07/18 11:54 Vital Signs Reviewed: Yes Eye Exam: Normal ENT: Positive: Hearing grossly normal Respiratory: Positive: No respiratory distress Musculoskeletal: Positive: Strength Limited @ - right foot, ROM Limited @ - right foot Neurological Exam: Normal, Other - has rsd Psychological Exam: Normal Skin Exam: Normal Diagnostics - Radiology No standard instances Radiology Interpretation Completed By: Radiologist - IMPRESSION: NO RADIOGRAPHICALLY APPARENT FRACTURE OR OTHER ACUTE ABNORMALITY OF THE RIGHT FOOT. Lower Extremity Course/Dx - Course Course Of Treatment: I discussed with her the need to follow up with her PCP, pain management, and employee relations consultant.I asked the pt about her use of her prescribed RX as below from [facility] This report was requested by: Sue Durant | Reference #: [id number] Others' Prescriptions Patient Name: Rina Cotter Date: 1970 Address: [address] [place] [address] Sex: Female Rx Written Rx Dispensed Drug Quantity Days Supply Prescriber Name Payment Method Dispenser 07/01/2018 07/04/2018 hydrocodone-acetaminophen 5-325 mg tablet 60 30 Lynn [facility] [id number] 04/02/2018 04/06/2018 hydrocodone-acetaminophen 5-325 mg tablet 90 30 Lynn Pearson [facility] [id number] 01/16/2018 01/23/2018 tramadol hcl 50 mg tablet 90 30 Lynn Pearson [facility] [id number] 11/06/2017 11/11/2017 hydrocodone-acetaminophen 5-325 mg tablet 90 30 Lynn Pearson [facility] [id number] 09/13/2017 09/13/2017 butalbital comp-codeine #3 cap 18 7 Lynn Pearson [place] [facility] [id number] 08/08/2017 08/20/2017 belbuca 75 mcg film 60 30 PearsonLynn aguilar [facility] [id number] - Differential Dx/Diagnosis Differential Diagnosis/HQI/PQRI: Fracture (Closed), Sprain, Strain, Tendonitis Provider Diagnosis: Right foot pain Discharge - Sign-Out/Discharge Documenting (check all that apply): Patient Departure All imaging exams completed and their final reports reviewed: Yes - Discharge Plan Condition: Stable Disposition: HOME Patient Education Materials: Arthralgia (ED), R.I.C.E. Treatment (ED) Referrals: Nicolás Rios NP [Primary Care Provider] - If Needed Arutr Cooper DPM [Doctor of Podiatric Medicine] - If Needed Additional Instructions: Please follow up with your PCP, pain management provider and with your employee relations consultant. - Billing Disposition and Condition Condition: STABLE Disposition: Home"
== END 2018-07-07 13:50 | disposition home or self-care (01) ==
LOC: UCCORT 11:39
DX: M79.671 Pain in right foot (principal); G90.50 Complex regional pain syndrome I, unspecified; Z88.5 Allergy status to narcotic agent; Z91.030 Bee allergy status; Z87.891 Personal history of nicotine dependence
CPT/HCPCS: 99212; G0463

== ENCOUNTER 2018-08-02 15:47 | Emergency (ER) | payer OTHER ==
--- OUTSIDE RECORDS SUMMARY | 2018-08-02 17:21 | XMS REPORT | Continuity of Care Document ---
:1970 External Reference #:[id number] Author Name RaviMirela Care Team Providers Name Role Phone Nicolás Rios NP Care Team Information Dye Stand Loader Unavailable Nicolás Rios NP Primary Care Physician Unavailable Payers Date Identification Numbers Payment Provider Subscriber Policy Number: [id number] [employer] Insurance Rina Cotter PayID: [id number] [address] [place] [address] Advance Directives Description No Information Available Problems Description No Information Family History Date Family Member(s) Observation Comments Father Heart Disease Father due to [place] () Mother good health Siblings 2 Social History Type Date Description Comments Sex Unknown Marital Status Lives With Children Lives With Occupation Disabled Tobacco Use Start: Unknown End: Patient is a former smoker Unknown Recreational Drug Use Denies Drug Use Smoking Status Reviewed: 07/15/18 Patient is a former smoker Exercise Type/Frequency Does not exercise Allergies, Adverse Reactions, Alerts Active Allergies Reaction Severity Comments Date Arymo 07/12/2016 Medications Active Medications SIG Qnty Indications Ordering Provider Date Premarin 1 by mouth every Unknown 0.625mg Tablets day Atorvastatin Calcium 1 by mouth every Unknown 10mg day Tablets Hydrocodone-Acetaminoph take 1 tablet by Unknown en mouth twice a 5-325mg Tablets day if needed Levothyroxine Sodium take 1 tablet by Unknown 50mcg mouth once daily Tablets History Medications Meloxicam take one tab twice Unknown - 07/14/2018 7.5mg Tablets daily Lyrica 1 by mouth twice a day Unknown - 07/14/2018 25mg Capsules Immunizations Description No Information Available Vital Signs Date Vital Result Comment 07/15/2018 1:19pm Height 63 inches 5'3" Weight 245.00 lb Heart Rate 80 /min BP Systolic Sitting 124 mmHg left upper arm large cuff BP Diastolic Sitting 70 mmHg left upper arm large cuff Respiratory Rate 14 /min O2 % BldC Oximetry 97 % BMI (Body Mass Index) 43.4 kg/m2 10/02/2016 11:34am Height 63 inches 5'3" Weight 247.00 lb with boot cast Heart Rate 70 /min BP Systolic Sitting 110 mmHg BP Diastolic Sitting 64 mmHg Respiratory Rate 20 /min O2 % BldC Oximetry 98 % room air BMI (Body Mass Index) 43.7 kg/m2 07/12/2016 10:34am Height 63 inches 5'3" Weight 240.00 lb Heart Rate 79 /min BP Systolic Sitting 108 mmHg BP Diastolic Sitting 64 mmHg Respiratory Rate 16 /min O2 % BldC Oximetry 98 % BMI (Body Mass Index) 42.5 kg/m2 Results Description No Information Available Procedures Date Code Description Status 08/15/2016 12642 Polysomnography Sleep Staging 4+ Parameters W/Cpap Completed Encounters Type Date Location Provider Dx Diagnosis Office Visit 10/02/2016 [facility] Carter, G47.33 Obstructive sleep 11:30a [facility] ap[facility] (adult) [facility] (pediatric) E66.01 Morbid (severe) obesity due to excess calories Z68.41 Body mass index (BMI) 40.0-44.9, adult Office Visit 07/12/2016 [facility] G47.33 Obstructive sleep 10:30a [facility] RN, apnea (adult) [facility] (pediatric) R51 Headache R53.83 Other fatigue E66.01 Morbid (severe) obesity due to excess calories Z68.41 Body mass index (BMI) 40.0-44.9, adult [facility] 786.52 Painful 12:34p rich Barry M.D. [facility] 466.0 Bronchitis Acute 729.1 Myalgia & Myositis Unspec Plan of Treatment 07/15/2018 - Margarita Goyal NPG47.33 Obstructive sleep apnea (adult) ( pediatric)Follow up:1 yearRecommendations:If you have any sleepiness while driving you MUST avoid operating a vehicle or machinery. If you have difficulty with your equipment, or need to replace your mask or hoses, please contact your homecare agency. If you have any further questions, please call the [facility] at [phone] Obesity, unspecified
--- OUTSIDE RECORDS SUMMARY | 2018-08-02 17:21 | XMS REPORT | Continuity of Care Document ---
:1970 External Reference #:[id number] Author Name Nicolás Rios N.P. Address [address] [place] [address] Care Team Providers Name Role Phone Nicolás Rios N.P. Care Team Information Associate Director Finance Unavailable Payers Date Identification Numbers Payment Provider Subscriber Policy Number: [id number] [employer] Number: [id number] [address] PayID: [id number] [place] [address] Problems Active Problems Provider Date Hysterectomy Nicolás Rios N.PShira Onset: 10/29/2014 Hypercholesterolemia Nicolás Rios, N.PShira Onset: 05/18/2016 Sleep apnea Nicolás Rios, N.PShira Onset: 05/18/2016 Chronic back pain Nicolás Rios, N.PShira Onset: 02/15/2017 Reflex sympathetic dystrophy of lower Nicolás Rios, N.P. Onset: 2016 extremity Migraine with typical aura Nicolás Rios, N.PShira Onset: 07/03/2017 Hypothyroidism Nicolás Rios, N.P. Onset: 06/10/2018 Family History Date Family Member(s) Observation Comments Father Heart Disease triple bypass : (08/29/2013) Father due to [place] Mar 2013, age 71 Document: 08/29/13 - Short Exam-159 Mother Good Health First Son Good Health First Sister Migraine Headache Second Sister Good Health Social History Type Date Description Comments Sex Unknown Marital Status Lives With Son katie (Litzy) Lives With Spouse Occupation ell teacher Tobacco Use Start: Unknown End: Former [...] 1gm Tablets times a day x 7 Nicolás, N.P. 07/03/2017 days Meloxicam 1 by mouth twice 180tabs Gabriel, 08/18/2016 - 7.5mg Tablets a day Nicolás, N.P. 07/03/2017 Nucynta ER Gabriel, 08/18/2016 - 50mg Tablets ER 12HR Nicolás, N.P. 09/12/2016 Hydrochlorothiazide 1 by mouth every 30caps Gabriel, 08/18/2016 - 12.5mg day Nicolás, N.P. 07/03/2017 Capsules Pain Management referring to see Gabriel, 05/22/2016 - the ROUTE DELIVERY SUPERVISOR at the Nicolás, N.P. 07/03/2017 pain clinic in [place] for lower ext pain Atorvastatin Calcium 1 [...] N.P. 03/16/2016 Zithromax Z-El[place] as directed 1tabs Gabriel, 01/05/2014 - 250mg Tablets Mashelle, N.P. 10/29/2014 Prednisone 1 po qd x 5 days 5tabs [place], 04/08/2013 - 50mg Tablets Mashelle, N.P. 08/29/2013 Work Note return to [place], 12/11/2011 - unrestricted work Oliviale, N.P. 02/13/2012 12/13/11 Tessalon 1 po tid prn 21caps [place], 12/07/2011 - 200mg Capsules Mashelle, N.P. 02/13/2012 Albuterol Sulfate 1 via nebulizer 40jets [place], 12/04/2011 - (2.5mg/3ML) qid Mashelle, N.P. 02/13/2012 0.083% Nebulizer Ipratropium [place] 1 vial qid 40un [place], 12/04/2011 - 0.03% Mashelle, N.P. 02/13/2012 Solution Budesonide 2ml via nebulizer 30un Gabriel, 12/04/2011 - 0.5mg/2ML Suspension bid Mashelle, N.P. 02/13/2012 Prednisone 4 po x 3 days, 30 Gabriel, 12/04/2011 - 10mg Tablets then 3 po x 3 Mashelle, N.P. 02/13/2012 days then 2 po x 3 days then 1 po x 3 days Cheratussin ac 1 teaspoon every 236ml [place], 11/28/2011 - 100-10mg/5ML 4-6 h prn cough Oliviale, N.P. 02/13/2012 Syrup Azithromycin 2 po day one then 6tabs Gabriel, 11/27/2011 - 250mg Tablets 1 po qd x 4 days Mashelle, N.P. 12/04/2011 Keflex 1 po qid x 7 days 28caps [place], 01/17/2011 - 500mg Capsules Mashelle, N.P. 11/27/2011 Lidoderm apply as directed un Gabriel, 01/17/2011 - 5% Patches Paulhelle, N.P. 11/27/2011 Zovirax apply bid to 15gm [place], 01/17/2011 - 5% Ointment sores Nicolás, N.P. 02/13/2012 Premarin 1 po qd 90tabs [place], 11/21/2010 - 0.625mg Tablets Oliviale, N.P. 10/29/2014 Cheratussin ac 1 teaspoon every 236ml [place], 11/21/2010 - 100-10mg/5ML 4-6 h prn cough Nicolás, N.P. 01/17/2011 Syrup Zithromax Z-[place] as directed 1tabs Gabriel, 11/21/2010 - 250mg Tablets Oliviale, N.P. 01/17/2011 Premarin 1 po qd 90tabs [place], 04/18/2010 - 0.3mg Tablets Nicolás, N.P. 11/21/2010 Flexeril 1 po tid 10tabs [place], 04/18/2010 - 10mg Tablets Nicolás, N.P. 11/27/2011 Topamax 1 po bid 60tabs [place], 04/13/2010 - 25mg Tablets Nicolás, N.P. 02/13/2012 Zofran Odt 1-2 tabs tid prn 12bs Gabriel, 04/13/2010 - 4mg Tablets Dispers nausea Nicolás, N.P. 04/27/2010 Ketorolac Tromethamine 1 po qd prn as 20tabs [place], 04/13/2010 - 10mg directed no more Nicolás, N.P. 08/29/2013 Tablets than 5 consecutive days Work Note No work Gabriel, 04/13/2010 - 12/11/11-12/12/11 Nicolás, N.P. 02/13/2012 for medical reasons Avelox 1 po qd x 10 days samples Gabriel, 12/20/2009 - 400mg Tablets Oliviale, N.P. 04/13/2010 Tylenol With Codeine #3 1-2 po q 4-6 20tabs Gabriel, 04/15/2009 - hours prn pain Nicolás, N.P. 04/13/2010 300-30mg Tablets Zithromax Z-[place] as directed 1tabs Gabriel, 04/14/2009 - 250mg Tablets Mashelle, N.P. 12/20/2009 Proventil HFA 2 puffs qid prn 1Inhaler Gabriel, 04/14/2009 - 108(90Base) shortness of Nicolás, N.P. 08/29/2013 mcg/ac Aerosol breath Guaifenesin-Codeine 1-2 teaspoons po 240ml Gabriel, 04/14/2009 - q 4-6 h prn cough Nicolás, N.P. 04/15/2009 100-10mg/5ML Liquid Prednisone 2 po qd x 3 days 6tabs Gabriel, 04/14/2009 - 20mg Tablets Oliviale, N.P. 04/13/2010 Work Note no work 466.0 [...] dx- chest pain Gabriel, 03/25/2007 - Contrast Oliviale, N.P. 04/14/2009 Phentermine HCL 1 po q [...] Ibuprofen 1 po tid prn with 60tabs [place], 04/02/2006 - 800mg Tablets food Nicolás, N.P. [...] CPT Code Status Date Vaccine Lot # [id number] Refused 03/18/2018 Influenza Vac, Quadrivalent, Split, 0.5mL [...] Date Facility Test Result H/L Range Note Lipid Treatment 07/26/2018 [facility] Cholesterol 206 mg/dL High 50-199 1 Triglycerides 232 mg/dL High 30-200 HDL 49 mg/dL 35-85 2 Chol/ HDL Ratio 4.2 ratio 3.7-5.6 VLDL 46 mg/dL High 2-29 LDL (Calc) 111 mg/dL High 20-99 3 Alt 12 U/L 3-42 Ast 12 U/L 8-42 Laboratory test finding 07/26/2018 [facility] TSH 2.77 uIU/mL 0.35-4.94 Hemoglobin A1c 07/02/2018 [facility] Hemoglobin A1c 5.7 % 4.1-5.9 Estimated Average Glucose Calc 117 mg/dL 71-140 Laboratory test finding 07/02/2018 [facility] TSH 5.10 uIU/mL High 0.35- 4.94 Lipid Treatment 07/02/2018 [facility] Cholesterol 208 mg/dL High 50-199 Triglycerides 169 mg/dL 30-200 HDL 49 mg/dL 35-85 4 Chol/ HDL Ratio 4.3 ratio 3.7-5.6 VLDL 34 mg/dL High 2-29 LDL (Calc) 126 mg/dL High 20-99 5 Alt 11 U/L 3-42 Ast 13 U/L 8-42 Comprehensive Met Panel-[facility]CMG 06/07/2018 [facility] Sodium 143 mmol/L 135- 146 6 Potassium 5.7 mmol/L High 3.5-5.2 Chloride# 104 mmol/L 97-110 7 Carbon Dioxide 30 mmol/L 24-34 Glucose 110 mg/dL High 70-105 BUN 13 mg/dL 6-26 Creatinine 0.7 mg/dL 0.5-1.4 Calcium 10.1 mg/dL 8.5-10.2 Total Protein 6.9 g/dL 6.0-8.0 Albumin 4.6 g/dL 3.6-4.9 Globulin 2.3 g/dL 2.0-3.5 A/G Ratio 2.0 Ratio 1.0-2.2 Total Bilirubin 0.3 mg/dL 0.1-1.3 Alkaline Phosphatase 51 U/L 24-140 Alt 13 U/L 3-42 Ast 14 U/L 8-42 Anion Gap 9 mmol/L 5-15 8 Daniella Egfr >60 >60 9 Non Daniella Egfr >60 >60 10 Lipid 06/07/2018 [facility] Cholesterol 301 mg/dL High 50-199 Triglycerides 211 mg/dL High 30-200 HDL 52 mg/dL 35-85 11 Chol/ HDL Ratio 5.8 ratio High 3.7-5.6 VLDL 42 mg/dL High 2-29 LDL (Calc) 207 mg/dL High 20-99 12 Laboratory test finding 06/07/2018 [facility] TSH 5.57 uIU/mL High 0.35- 4.94 Laboratory test finding 09/12/2016 [facility] TSH 3.73 uIU/mL 0.35-4.94 13 Lipid Treatment 09/12/2016 [facility] Cholesterol 321 mg/dL High 50-199 Triglycerides 189 mg/dL 30-200 HDL 52 mg/dL 35-85 14 Chol/ HDL Ratio 6.2 ratio High 3.7-5.6 VLDL 38 mg/dL High 2-29 LDL (Calc) 231 mg/dL High 20-99 15 Alt 28 U/L 3-42 Ast 23 U/L 8-42 Laboratory test finding 06/13/2016 [facility] TSH 3.07 uIU/mL 0.35-4.94 16 #F# Thyroxine (Total T4) <pending> Free T4 0.78 ng/dL 0.70-1.48 Lipid Treatment 06/13/2016 [facility] Cholesterol 207 mg/dL High 50-199 Triglycerides 176 mg/dL 30-200 HDL 49 mg/dL 35-85 17 Chol/ HDL Ratio 4.3 ratio 3.7-5.6 VLDL 35 mg/dL High 2-29 LDL (Calc) 123 mg/dL High 20-99 18 Alt 14 U/L 3-42 Ast 15 U/L 8-42 Laboratory test finding 05/18/2016 [facility] Hemoglobin A1c 5.6 % 4.1-5.9 19 TSH 4.39 uIU/mL 0.35-4.94 Laboratory test 12/07/2011 [facility] Urine Culture Microbiology res 20 finding <SEE NOTE> Order 04/18/2010 [facility] EKG <pending> (315)- - CMP 04/18/2010 [facility] (Do not Use) Sodium 142 mmol/L 135-1 21 [facility] [address] [place] [address] [phone] Potassium 4.8 mmol/L 3.6-5.2 Chloride 103 mmol/L [...] 8-16 GFR Calculation > 60 mL/min 60-175 22 GFR For > 60 mL/min 60-175 23 Laboratory test 04/18/2010 [facility] (Do not Use) TSH 3.27 uIU/ml 0.34 -5.60 finding [facility] [place] [address] [phone] CBC With Auto Diff 04/18/2010 [facility] (Do not Use) WBC 8.6 K/ul 4.0- 10.9 [facility] [place] [address] [phone] RBC 4.47 M/ul 4.20-5.40 Hemoglobin 14.5 GM/dl [...] Use) TSH 3.01 uIU/ml 0.34 -5.60 finding [facility] [place] [address] [phone] CBC With Auto Diff 11/01/2007 [facility] (Do not Use) WBC 6.7 K/ul 4.0- 10.9 [facility] [place] [address] [phone] RBC 3.60 M/ul Low 4.20-5.40 Hemoglobin 11.7 [...] Uric Acid 4.0 mg/dL Low 4.8-8.7 finding [facility] [employer] [place] [address] [phone] CBC With Auto Diff 06/21/2006 [facility] (Do not Use) WBC 7.1 K/ul 4.0- 10.9 [facility] [employer] [place] [address] [phone] RBC 3.97 M/ul Low 4.70-6.10 Hemoglobin 12.7 [...] K/ul 0.1-0.3 1 This sample is drawn by:DL/SUSTAINABILITY OFFICER 2 Per NCEP ATP III Guidelines: Results lower than 40 mg/dL are suggestive of increased risk for coronary artery disease. Results > or=to 60 mg/dL are considered a negative risk factor. 3 Per NCEP ATP III Guidelines: Normal Population <130 Patients with medical conditions: CHD/DM Optimal: <100 Borderline high: 130-159 High: 160-189 Very high: >189 4 Per NCEP ATP III Guidelines: Results lower than 40 mg/dL are suggestive of increased risk for coronary artery disease. Results > or=to 60 mg/dL are considered a negative risk factor. 5 Per NCEP ATP III Guidelines: Normal Population <130 Patients with medical conditions: CHD/DM Optimal: <100 Borderline high: 130-159 High: 160-189 Very high: >189 6 Updated reference range on new analyzer 7 Updated reference range on new analyzer 8 Updated Reference Range 9 Concerning GFR Guidelines for Americans: Normal function or mild renal disease, if clinically at risk: >/=60 mL/min Moderately decreased: 30-59 Severely decreased: 15-29 Renal failure: <15 10 Concerning GFR Guidelines: Normal function or mild [...] drugs that are excreted by the kidneys. 11 Per NCEP ATP III Guidelines: Results lower than 40 mg/dL are suggestive of increased risk for coronary artery disease. Results > or=to 60 mg/dL are considered a negative risk factor. 12 Per NCEP ATP III Guidelines: Normal Population <130 Patients with medical conditions: CHD/DM Optimal: <100 Borderline high: 130-159 High: 160-189 Very high: >189 13 This sample is drawn by:HUNTER/MICHELLE 14 Per NCEP ATP III Guidelines: Results lower than 40 mg/dL are suggestive of increased risk for coronary artery disease. Results > or=to 60 mg/dL are considered a negative risk factor. 15 Per NCEP ATP III Guidelines: Normal Population <130 Patients with medical conditions: CHD/DM Optimal: <100 Borderline high: 130-159 High: 160-189 Very high: >189 16 This sample is drawn by:KD/WELL SERVICES OPERATOR 17 Per NCEP ATP III Guidelines: Results lower than 40 mg/dL are suggestive of increased risk for coronary artery disease. Results > or=to 60 mg/dL are considered a negative risk factor. 18 Per NCEP ATP III Guidelines: Normal Population <130 Patients with medical conditions: CHD/DM Optimal: <100 Borderline high: 130-159 High: 160-189 Very high: >189 19 This sample is drawn by:HUNTER/SUSTAINABILITY OFFICER 20 Microbiology results SOURCE [facility] FINAL RESULT No growth 21 This sample is drawn by: LP 22 Concerning GFR GUIDELINES: Normal Function or Mild [...] drugs that are excreted by the kidneys. 23 Concerning GFR GUIDELINES: Normal Function or Mild Renal Disease, if clinically at risk: >/=60mL/min Moderately decreased: 30-59 Severely decreased: 15-29 Renal Failure: <15 Procedures Date Code Description Status 03/31/2016 96831655 Mammogram Completed 08/29/2013 68630 Electrocardiogram Complete Completed 12/11/2011 01640 Measure Blood Oxygen Level Single Determination Completed 12/07/2011 90925 Measure Blood Oxygen Level Single Determination Completed 12/04/2011 47878 Measure Blood Oxygen Level Single Determination Completed 12/04/2011 35729 Airway Inhalation Treatment Completed 11/27/2011 94115 Measure Blood Oxygen Level Single Determination Completed 11/21/2010 81223 Measure Blood Oxygen Level Single Determination Completed 04/18/2010 00310 Admin Of Inj (Therapeutic Phrophylactic Or Diagnostic Completed Subq Inj 04/18/2010 85662 Electrocardiogram Complete Completed 04/13/2010 69725 Admin Of Inj (Therapeutic Phrophylactic Or Diagnostic Completed Subq Inj 12/20/2009 32094 Measure Blood Oxygen Level Single Determination Completed 04/14/2009 74586 Measure Blood Oxygen Level Single Determination Completed 05/22/2008 13076 Measure Blood Oxygen Level Single Determination Completed Encounters Type Date Location Provider Dx Diagnosis Office Visit 07/04/2018 Nicolás Ramirez, E03.9 Hypothyroidism, 10:30a N.P. unspecified E78.00 Pure hypercholesterolemia, unspecified E66.8 Other obesity Office Visit 06/10/2018 10:00a Nicolás Ramirez, E03.9 Hypothyroidism, N.P. unspecified E78.00 Pure hypercholesterolemia, unspecified R79.9 [...] Acute Other Multiple Sites Plan of Treatment 07/04/2018 - Nicolás Rios, N.P.E03.9 Hypothyroidism, unspecifiedComments: increase Levothyroxine to 50mcg qd and recheck labs in 3 weeks while we adjust doseE78.00 Pure hypercholesterolemia, unspecifiedComments:f/u labs, follow low chol dietstable on current [facility] same and limit chol in dietE66.8 Other obesityComments:health risks of obesity discussed with pt. instructed to decrease caloric intake, aerobic exercise, start slow as discussedAllNew Medication:Levothyroxine Sodium 50 mcg - 1 by mouth every day
[2018-08-02 17:30] VITALS: BP 125/74
--- NOTE | 2018-08-02 17:34 | UC ---
Respiratory Complaint HPI - HPI Summary HPI Summary: Per media services director: "Sore throat for two days last week, then resolved. Three days ago had five teeth removed. Finished 15 day course of Amox 500mg TID yesterday. Rapid onset of nasal congestion, sore throat, "yellow" productive and painful cough, and painful deep inspiration last night. No known fever. Has been using Mucinex." -here w/ her . very productive cough. no fevers. no wheezing, no asthma. - History of Current Complaint Chief Complaint: UCRespiratory Stated Complaint: SORE THROAT/COUGH/CONGESTION Time Seen by Provider: 08/02/18 17:19 Pain Intensity: 3 - Allergies/Home Medications Allergies/Adverse Reactions: Allergies Allergy/AdvReac Type Severity Reaction Status Date / Time bee venom protein (honey bee) Allergy Severe Anaphylatic Verified 08/02/18 17:24 Shock morphine Allergy Intermediate Nausea And Verified 08/02/18 17:24 Vomiting Home Medications: Home Medications Conjugated Estrogens TAB* [Premarin TAB*] 0.625 mg PO DAILY 08/02/18 [History Confirmed 08/02/18] PMH/Surg Hx/FS Hx/Imm Hx Endocrine History: Thyroid Disease Other History Of: Negative For: HIV, Hepatitis B, Hepatitis C, Anticoagulant Therapy - Surgical History Surgical History: Yes Surgery Procedure, Year, and Place: Hysterectomy 2006; CYSTECTOMIES PRIOR TO HYSTERECTOMY; C SECTION; MANY FEMALE SURGERIES PRIOR TO HYSTERECTOMY09/15 LEFT FOOT TARSAL TUNNEL SURGERY; trial dorsal column stimulator - Family History Known Family History: Positive: Cardiac Disease, Hypertension, Diabetes Negative: Respiratory Disease - no asthma - Social History Alcohol Use: None Substance Use Type: Prescribed Substance Use Comment - Amount & Last Used: hydrocodone Smoking Status (MU): Former Smoker Type: Cigarettes Amount Used/How Often: 1 PACK/DAY Length of Time of Smoking/Using Tobacco: >1 PPD x 25 Years Have You Smoked in the Last Year: No When Did the Patient Quit Smoking/Using Tobacco: 10/10/12 - Immunization History Vaccination Up to Date: Yes Review of Systems All Other Systems Reviewed And Are Negative: Yes Constitutional: Positive: Fatigue Skin: Positive: Negative Eyes: Positive: Negative ENT: Positive: Sore Throat, Nasal Discharge. Negative: Sinus Pain/Tenderness Respiratory: Positive: Cough. Negative: Shortness Of Breath Cardiovascular: Positive: Negative Gastrointestinal: Positive: Negative Genitourinary: Positive: Negative Motor: Positive: Negative Neurovascular: Positive: Negative Musculoskeletal: Positive: Negative Neurological: Positive: Negative Psychological: Positive: Negative Is Patient Immunocompromised?: No Physical Exam Triage Information Reviewed: Yes Appearance: Well-Nourished, Ill-Appearing - d/t cough. Vital Signs: Initial Vital Signs Temp 98.4 F 08/02/18 17:20 Pulse 84 08/02/18 17:20 Resp 18 08/02/18 17:20 BP 125/74 08/02/18 17:20 Pulse Ox 100 08/02/18 17:20 Vital Signs Reviewed: Yes Eye Exam: Normal ENT: Positive: Pharynx normal - + PND, no exudate., Nasal congestion, Nasal drainage, TMs normal. Negative: TM bulging, TM dull, TM red, Tonsillar swelling , Tonsillar exudate, Sinus tenderness Neck exam: Normal Neck: Positive: Supple, Nontender, No Lymphadenopathy Respiratory: Positive: Lungs clear, No respiratory distress, Decreased breath sounds - mild. Negative: Crackles, Rhonchi, Stridor, Wheezing Cardiovascular Exam: Normal Cardiovascular: Positive: RRR, No Murmur, Pulses Normal Abdominal Exam: Normal Abdomen Description: Positive: Soft Musculoskeletal Exam: Normal Neurological Exam: Normal Psychological Exam: Normal Skin Exam: Normal Respiratory Course/Dx - Differential Dx/Diagnosis Differential Diagnosis/HQI/PQRI: Asthma, Bronchitis Provider Diagnosis: Bronchitis Discharge - Sign-Out/Discharge Documenting (check all that apply): Patient Departure All imaging exams completed and their final reports reviewed: No Studies - Discharge Plan Condition: Stable Disposition: HOME Patient Education Materials: Acute Bronchitis (ED) Referrals: Nicolás Rios NP [Primary Care Provider] - 1 Week Additional Instructions: There is no evidence for bacterial infection. Mucinex OTC can be helpful as well as albuterol. You told us that you have an albuterol inhaler at home that you prefer to use. - Billing Disposition and Condition Condition: STABLE Disposition: Home
== END 2018-08-02 17:50 | disposition home or self-care (01) ==
LOC: UCCORT 15:47
DX: J40 Bronchitis, not specified as acute or chronic (principal); Z87.891 Personal history of nicotine dependence
CPT/HCPCS: 99211; G0463

== ENCOUNTER 2019-03-20 13:02 | Emergency (ER) | payer OTHER ==
--- OUTSIDE RECORDS SUMMARY | 2019-03-20 13:11 | XMS REPORT | Continuity of Care Document ---
:1970 External Reference #:[id number] Author Name Nicolás Rios N.P. Address [address] [place] [id number] Problems Active Problems Provider Date Hysterectomy Nicolás Rios, N.P. Onset: 10/29/2014 Hypercholesterolemia Nicolás Rios, N.PShira Onset: 05/18/2016 Sleep apnea Nicolás Rios, N.PShira Onset: 05/18/2016 Chronic back pain Nicolás Rios, N.P. Onset: 02/15/2017 Reflex sympathetic dystrophy of lower Nicolás Rios N.P. Onset: 2016 extremity Migraine with typical aura Nicolás Rios, N.P. Onset: 07/03/2017 Hypothyroidism Nicolás Rios, N.P. Onset: 06/10/2018 Social History Type Date Description Comments Sex Unknown Tobacco Use Start: Unknown End: Unknown Former Cigarette Smoker 2012 Tobacco Use Start: Unknown Patient has never smoked Allergies, Adverse Reactions, Alerts Active Allergies Reaction Severity Comments Date Morphine GI 04/02/2006 Medications Active Medications SIG Qnty Indications Ordering Provider Date Cefdinir 1 by mouth 20caps Nicolás Rios, 03/17/2019 300mg Capsules twice a day x N.P. 10 days Valacyclovir HCL 1 by mouth 21tabs Nicolás Rios, 12/19/2018 1gm three times a N.P. Tablets day x 7 days Levothyroxine Sodium 1 by mouth 90tabs Nicolás Rios, 08/01/2018 75mcg every day N.P. Tablets Atorvastatin Calcium Take 1 Tablet 90tabs Nicolás Rios, 06/10/2018 10mg Daily N.P. Tablets Premarin 1 by mouth 90tabs Nicolás Rios, 07/03/2017 0.625mg Tablets every day N.P. Medications Administered in Office Medication SIG Qnty Indications Ordering Provider Date Torodol Injection 15 MG Dose Nicolás Rios, N.P. 04/18/2010 Injection Torodol Injection 15 MG Dose Nicolás Rios, N.P. 04/13/2010 Injection Immunizations CPT Code Status Date Vaccine Lot # [id number] Refused 12/19/2018 Influenza Vac, Quadrivalent, Split, 0.5mL Dosage, Im Use [id number] Refused 03/18/2018 Influenza Vac, Quadrivalent, Split, 0.5mL Dosage, Im Use Vital Signs Date Vital Result Comment 03/17/2019 9:35am Body Temperature 97.2 F Weight 260.00 lb Heart Rate 70 /min BP Systolic 124 mmHg BP Diastolic 82 mmHg O2 % [facility]ld[facility] Oximetry 97 % 12/19/2018 10:50am Body Temperature 97.2 F Weight 258.12 lb Heart Rate 77 /min BP Systolic 110 mmHg BP Diastolic 74 mmHg O2 % BldC Oximetry 98 % Results Test Acquired Date Facility Test Result H/L Range Note Laboratory test finding 12/19/2018 [facility] 1.62 uIU/mL 0.35-4.94 1 CBC with Auto Diff-fcmg 12/19/2018 [facility] WBC 7.9 K/uL 4.1-11.0 RBC 3.61 M/uL Low 4.00-5.40 Hemoglobin 11.4 gm/dL Low 12.0-16.0 Hematocrit 33.7 % Low 36.0-47.0 MCV 93.5 fL 80.0-97.0 MCH 31.6 pg 27.0-32.0 MCHC 33.8 g/dL 32.0-36.0 RDW 13.0 % 11.5-14.5 PLT Count 211 K/ul 140-400 MPV 10.9 FL High 7.1-10.7 Neutrophil 55.1 % 35.0-75.0 Lymphocyte 36.2 % 16.0-52.0 Monocyte 6.5 % 2.0-10.0 Eosinophil 1.5 % 0.0-5.0 Basophil 0.7 % 0.0-4.0 Abs Neutrophils 4.3 K/uL 2.1-8.0 Abs Lymphocytes 2.9 K/uL 0.8-5.5 Abs Monocytes 0.5 K/uL 0.1-1.0 Abs Eosinophils 0.1 K/uL 0.0-0.5 Abs Basophils 0.1 K/uL 0.0-0.3 Comprehensive Met Panel-[facility] 12/19/2018 [facility] Sodium 141 mmol/L 135- 146 2 Potassium 4.5 mmol/L 3.5-5.2 Chloride# 104 mmol/L 97-110 3 Carbon Dioxide 28 mmol/L 24-34 Calcium 9.2 mg/dL 8.5-10.5 4 Glucose 87 mg/dL 70-105 BUN 11 mg/dL 6-26 Creatinine 0.6 mg/dL 0.5-1.4 Total Protein 6.3 g/dL 6.0-8.0 Albumin 4.0 g/dL 3.6-4.9 Globulin 2.3 g/dL 2.0-3.5 A/G Ratio 1.7 Ratio 1.0-2.2 Total Bilirubin 0.3 mg/dL 0.1-1.3 Alkaline Phosphatase 51 U/L 24-140 Alt 16 U/L 3-42 Ast 19 U/L 8-42 Anion Gap 9 mmol/L 5-15 5 Female Egfr 109 >60 6 Male Egfr 120 >60 7 Drug Abuse 20 11/21/2018 [facility] Urine Amphetamine Negative ng/mL 8 Urine Urine Barbiturates Negative ng/mL 9 Urine Benzodiazepines Negative ng/mL 10 Urine Cocaine Negative ng/mL 11 Urine Phencyclidine Negative ng/mL Cutoff: 25 Urine Tetrahydrocannabinol Negative ng/mL Cutoff: 50 12 Creatinine, Urine 96.1 mg/dL Specific [place] 1.014 pH 5.7 Oxidants Negative 13 Adulterants Comment Normal Codeine, Ur Not Detected ng/mL Cutoff: 25 14 Dlslxsu-1-ihhc-glucuronide, Ur Not Detected ng/mL 15 Morphine, Ur Not Detected ng/mL Cutoff: 25 16 Gqzweory-2-oydn-glucuronide, U Not Detected ng/mL 17 6-monoacetylmorphine, Ur Not Detected ng/mL Cutoff: 25 18 Hydrocodone, Ur Not Detected ng/mL Cutoff: 25 19 Norhydrocodone, Ur Not Detected ng/mL Cutoff: 25 20 Dihydrocodeine, Ur Not Detected ng/mL Cutoff: 25 21 Hydromorphone, Ur Not Detected ng/mL Cutoff: 25 22 Hurhjoubtbfon1wgcqpersojexpph Not Detected ng/mL 23 Oxycodone, Ur Not Detected ng/mL Cutoff: 25 24 Noroxycodone, Ur Not Detected ng/mL Cutoff: 25 25 Oxymorphone, Ur Not Detected ng/mL Cutoff: 25 26 Nmjhbvhjojy-7-ojab-glucuronide Not Detected ng/mL 27 Noroxymorphone, Ur Not Detected ng/mL Cutoff: 25 28 Fentanyl, Ur Not Detected ng/mL Cutoff: 2 29 Norfentanyl, Ur Not Detected ng/mL Cutoff: 2 30 Meperidine, Ur Not Detected ng/mL Cutoff: 25 31 Normeperidine, Ur Not Detected ng/mL Cutoff: 25 32 Naloxone, Ur Not Detected ng/mL Cutoff: 25 33 Nigltqdp-2-wpsx-glucuronide, U Not Detected ng/mL 34 Methadone, Ur Not Detected ng/mL Cutoff: 25 35 Eddp, Ur Not Detected ng/mL Cutoff: 25 36 Propoxyphene, Ur Not Detected ng/mL Cutoff: 25 37 Norpropoxyphene, Ur Not Detected ng/mL Cutoff: 25 38 Tramadol, Ur Not Detected ng/mL Cutoff: 25 39 O-desmethyltramadol, Ur Not Detected ng/mL Cutoff: 25 40 Tapentadol, Ur Not Detected ng/mL Cutoff: 25 41 N-desmethyltapentadol, Ur Not Detected ng/mL Cutoff: 50 42 Nrtsavfulw-jnsy-xrpsncibafs, U Not Detected ng/mL 43 Buprenorphine, Ur Not Detected ng/mL Cutoff: 5 44 Norbuprenorphine, Ur Not Detected ng/mL Cutoff: 5 45 Norbuprenorphine glucuronide Not Detected ng/mL Cutoff: 20 46 Opioid Interpretation See Comment 47 1 This sample is drawn by:SS/EVENT LIGHTING SPECIALIST 2 Updated reference range on new analyzer 3 Updated reference range on new analyzer 4 Updated reference range 07-03-2018 5 Updated Reference Range 6 Concerning GFR Guidelines for Americans: Normal function or mild renal disease, if clinically at risk: >/= 60 mL/min Moderately decreased: 30-59 Severely decreased: 15-29 Renal failure: <15 There is reduced accuracy above 60ml/min/1.73 m squared, but the numeric value may be clinically useful in the near 60 range 7 Concerning GFR Guidelines: Normal function or mild renal disease, if clinically at risk: >/= 60 mL/min Moderately decreased: 30-59 Severely decreased: 15-29 Renal failure: <15 There is reduced accuracy above 60ml/min/1.73 m squared, but the numeric value may be clinically useful in the near 60 range Glomerular Filtration Rate (GFR) is estimated based on the CKD-EPI equation, which assumes a steady state for [...] drugs that are excreted by the kidneys. 8 REFERENCE VALUE Cutoff: 500 9 REFERENCE VALUE Cutoff: 200 10 REFERENCE VALUE Cutoff: 100 11 REFERENCE VALUE Cutoff: 150 12 ADDITIONAL INFORMATION This report is intended for use in clinical monitoring or management of patients. It is not intended for use in employment-related testing. Test Performed by: [facility] [employer] - [address] [address] Inspector Cold Working: Clive Orellana M.D. Ph.D.; CLIA# [id number] 13 REFERENCE VALUE Cutoff: 200 mg/L 14 Tylenol 3 15 Metabolite of codeine REFERENCE VALUE Cutoff: 100 16 Anju Marte, MS Contin; Also a minor metabolite (10%) of codeine and can be seen in low concentrations (<2,000 ng/mL) with poppy seed ingestion. 17 Metabolite of morphine REFERENCE VALUE Cutoff: 100 18 Metabolite of heroin 19 Lortab, [place], Vicodin; Also a very minor metabolite of codeine and impurity (<1%) of oxycodone. 20 Metabolite of hydrocodone 21 Metabolite of hydrocodone 22 Dilaudid, Exalgo; Also a metabolite of hydrocodone and a minor (<5%) metabolite of morphine. 23 Metabolite of hydromorphone REFERENCE VALUE Cutoff: 100 24 Endocet, Percocet, Oxycontin 25 Metabolite of oxycodone 26 Numorphan, Opana; Also a metabolite of oxycodone. 27 Metabolite of oxymorphone REFERENCE VALUE Cutoff: 100 28 Metabolite of oxymorphone 29 Actiq, Duragesic, Fentora 30 Metabolite of fentanyl 31 Demerol 32 Metabolite of meperidine 33 Narcan 34 Metabolite of naloxone REFERENCE VALUE Cutoff: 100 35 Dolophine 36 Metabolite of methadone 37 Darvon, Darvocet 38 Metabolite of propoxyphene 39 Tradol, Ultram, Ultracet 40 Metabolite of tramadol 41 Nucynta 42 Metabolite of tapentadol 43 Metabolite of tapentadol REFERENCE VALUE Cutoff: 100 44 Buprenex, Suboxone 45 Metabolite of buprenorphine 46 Metabolite of buprenorphine 47 No opioids were detected. The absence of expected drug(s) and/or drug metabolite(s) may indicate non-compliance, altered pharmacokinetics, inappropriate timing of specimen collection relative to drug administration, diluted/adulterated urine, or limitations of testing. ADDITIONAL INFORMATION This test was developed and its performance characteristics determined by [facility] in a manner consistent with CLIA requirements. This test has not been cleared or approved by the U.S. Food and Drug Administration. Procedures Date Code Description Status 03/17/2019 29415 Admin Patient Focused Health Risk Assessment Instrument Completed 03/31/2016 [id number] Mammogram Completed Medical Devices Description No Information Available Encounters Type Date Location Provider Dx Diagnosis Office Visit 12/19/2018 10:45a Nicolás Ramirez, N.P. R53.83 Other fatigue M54.2 Cervicalgia R20.8 Other disturbances of skin sensation Z28.21 Immunization not carried out because of patient refusal E03.9 Hypothyroidism, unspecified Assessments Date Code Description Provider 03/17/2019 J01.00 Acute maxillary sinusitis, unspecified Nicolás Rios, N.P. 03/17/2019 H66.92 Otitis media, unspecified, LEFT ear Nicolás Rios, N.P. 12/19/2018 R53.83 Other fatigue Nicolás Rios, N.P. 12/19/2018 M54.2 Cervicalgia Nicolás Rios, N.P. 12/19/2018 R20.8 Other disturbances of skin sensation Nicolás Rios, N.P. 12/19/2018 Z28.21 Immunization not carried out because of Nicolás iRos, N.P. patient refusal 12/19/2018 E03.9 Hypothyroidism, unspecified Nicolás Rios N.Kamryn 12/19/2018 E03.9 Hypothyroidism, unspecified [facility] [place] [facility] 12/19/2018 R53.83 Other fatigue [facility] [place] [facility] Plan of Treatment 03/17/2019 - Nicolás Rios N.PShiraJ01.00 Acute maxillary sinusitis, unspecifiedComments:cefdinir 300mg bid x 10 daysOTC mucinex,sudafed, increase fluids, rest, bveoawipxM28.92 Otitis media, unspecified, LEFT earComments: cefdinir as directedAllNew Medication:Cefdinir 300 mg - 1 by mouth twice a day x 10 days Functional Status Description No Information Available Mental Status Description No Information Available Referrals Description No Information Available
[2019-03-20 14:04] VITALS: BP 139/64
--- NOTE | 2019-03-20 14:23 | UC ---
Ear Complaint HPI - HPI Summary HPI Summary: 48-year-old female who had a bilateral ear infection diagnosed on Sunday of this week and was placed on Cefdinir. She also states she had a sinus infection. Today she states her right ear is more painful. She's had a runny nose, head congestion and feels like she's had a fever in the past 24 hours. - History of Current Complaint Chief Complaint: UCEar Stated Complaint: EARS DIZZY Time Seen by Provider: 03/20/19 14:10 Hx Obtained From: Patient ?: No Onset/Duration: Gradual Onset Severity Initially: Moderate Severity Currently: Moderate Pain Intensity: 8 Aggravating Factors: Nothing Alleviating Factors: Nothing Associated Signs/Symptoms: Positive: URI Symptoms - Allergies/Home Medications Allergies/Adverse Reactions: Allergies Allergy/AdvReac Type Severity Reaction Status Date / Time bee venom protein (honey bee) Allergy Severe Anaphylatic Verified 03/20/19 13:55 Shock morphine Allergy Intermediate Nausea And Verified 03/20/19 13:55 Vomiting Home Medications: Home Medications Cefdinir cap* [Cefdinir 300 MG cap (NF)] 1 cap BID 03/20/19 [History Confirmed 03/20/19] PMH/Surg Hx/FS Hx/Imm Hx Previously Healthy: Yes Endocrine History: Thyroid Disease, Dyslipidemia Other History Of: Negative For: HIV, Hepatitis B, Hepatitis C, Anticoagulant Therapy - Surgical History Surgical History: Yes Surgery Procedure, Year, and Place: Hysterectomy 2006; CYSTECTOMIES PRIOR TO HYSTERECTOMY; C SECTION; MANY FEMALE SURGERIES PRIOR TO HYSTERECTOMY09/15 LEFT FOOT TARSAL TUNNEL SURGERY; trial dorsal column stimulator - Family History Known Family History: Positive: Cardiac Disease, Hypertension, Diabetes Negative: Respiratory Disease - no asthma - Social History Alcohol Use: None Substance Use Type: None Substance Use Comment - Amount & Last Used: hydrocodone Smoking Status (MU): Former Smoker Type: Cigarettes Amount Used/How Often: 1 PACK/DAY Length of Time of Smoking/Using Tobacco: >1 PPD x 25 Years Have You Smoked in the Last Year: No When Did the Patient Quit Smoking/Using Tobacco: 10/10/12 - Immunization History Vaccination Up to Date: Yes Review of Systems All Other Systems Reviewed And Are Negative: Yes Constitutional: Positive: Fever - Patient feels like she's had a fever., Chills ENT: Positive: Ear Ache - Right earache, Nasal Discharge, Sinus Congestion Neurological: Positive: Headache Is Patient Immunocompromised?: No Physical Exam Triage Information Reviewed: Yes Appearance: Well-Appearing, No Pain Distress, Well-Nourished Vital Signs: Initial Vital Signs Temp 97.3 F 03/20/19 13:57 Pulse 68 03/20/19 13:57 Resp 16 03/20/19 13:57 BP 139/64 03/20/19 13:57 Pulse Ox 96 03/20/19 13:57 Vital Signs Reviewed: Yes Eyes: Positive: Conjunctiva Clear ENT: Positive: Pharynx normal, Nasal drainage - Clear nasal coryza, TMs normal, Uvula midline Neck: Positive: Supple, Nontender, No Lymphadenopathy Respiratory: Positive: Lungs clear, Normal breath sounds, No respiratory distress, No accessory muscle use Cardiovascular: Positive: RRR, No Murmur, Pulses Normal, Brisk Capillary Refill Ear Complaint Course/Dx - Course Course Of Treatment: Rapid flu test: Negative The patient was given Toradol 30 mg IM for her pain. She is nontoxic. The physical examination shows that her bilateral otitis media sinusitis has cleared completely. - Differential Dx/Diagnosis Provider Diagnosis: Earache, right Discharge ED - Sign-Out/Discharge Documenting (check all that apply): Patient Departure All imaging exams completed and their final reports reviewed: No Studies - Discharge Plan Condition: Fair Disposition: HOME Patient Education Materials: Earache (ED) Referrals: Nicolás Rios NP [Primary Care Provider] - Additional Instructions: Continue your isn't pain medications at home, may alternate Tylenol every 4 hours and Motrin every 8 hours with food. Apply warm moist compresses to the sore area. Follow-up with your primary care provider if no improvement in 4 or 5 days. If you have worsening symptoms with worsening headache follow-up in the emergency room. - Billing Disposition and Condition Condition: FAIR Disposition: Home
[2019-03-20 14:57] LABS: Influenza A Molecular NEGATIVE (Negative); Influenza B Molecular NEGATIVE (Negative)
[2019-03-20] MEDS ORDERED: Ketorolac INJ* 30 MG/ML 1 ML VIAL IM ONE (14:58)
== END 2019-03-20 15:18 | disposition home or self-care (01) ==
LOC: UCCORT 13:02
DX: H92.01 Otalgia, right ear (principal); R51 Headache; R09.81 Nasal congestion; Z88.5 Allergy status to narcotic agent; Z91.030 Bee allergy status; Z87.891 Personal history of nicotine dependence
CPT/HCPCS: 96372; 99211; G0463; J1885

== ENCOUNTER 2019-05-30 10:15 | Emergency (ER) | payer OTHER ==
--- OUTSIDE RECORDS SUMMARY | 2019-05-30 10:49 | XMS REPORT | Continuity of Care Document ---
:1970 External Reference #:[id number] Author Name Nicolás Rios N.P. Address [address] [place] [id number] Problems Active Problems Provider Date Hysterectomy Nicolás Rios, N.P. Onset: 10/29/2014 Hypercholesterolemia Nicolás Rios N.PShira Onset: 05/18/2016 Sleep apnea Nicolás Rios, N.PShira Onset: 05/18/2016 Chronic back pain Nicolás Rios, N.P. Onset: 02/15/2017 Reflex sympathetic dystrophy of lower Nicolás Rios N.PShira Onset: 2016 extremity Migraine with typical aura [...] Medications SIG Qnty Indications Ordering Provider Date Oseltamivir Phosphate 1 by mouth bid 10caps Nicolás Rios, 03/27/2019 75mg x 5 days N.P. Capsules Cefdinir 1 by mouth 20caps Nicolás Rios, [...] CPT Code Status Date Vaccine Lot # [id number] Refused 12/19/2018 Influenza Vac, Quadrivalent, Split, 0.5mL Dosage, Im Use 89595 Refused 03/18/2018 Influenza Vac, Quadrivalent, Split, 0.5mL Dosage, Im Use Vital Signs Date Vital Result Comment 03/27/2019 10:00am Body Temperature 97.3 F Weight 263.00 lb Heart Rate 63 /min BP Systolic 126 mmHg BP Diastolic 82 mmHg O2 % BldC Oximetry 97 % 03/17/2019 9:35am Body Temperature 97.2 F Weight 260.00 lb Heart Rate 70 /min BP Systolic 124 mmHg BP Diastolic 82 mmHg O2 % BldC Oximetry 97 % Results Test Acquired Date Facility Test Result H/L Range Note Rapid Influenza 03/20/2019 [facility] Influenza A NEGATIVE Negative A & B Molecular Molecular Influenza B Molecular NEGATIVE Negative 1 Laboratory test finding 12/19/2018 [facility] 1.62 uIU/mL 0.35-4.94 2 CBC with Auto Diff-fcmg 12/19/2018 [facility] WBC [...] 12/19/2018 [facility] Sodium 141 mmol/L 135- 146 3 Potassium 4.5 mmol/L 3.5-5.2 Chloride# 104 mmol/L 97-110 4 Carbon Dioxide 28 mmol/L 24-34 Calcium 9.2 mg/dL 8.5-10.5 5 Glucose 87 mg/dL 70-105 BUN 11 mg/dL 6-26 Creatinine 0.6 mg/dL 0.5-1.4 Total Protein 6.3 g/dL 6.0-8.0 Albumin 4.0 g/dL 3.6-4.9 Globulin 2.3 g/dL 2.0-3.5 A/G Ratio 1.7 Ratio 1.0-2.2 Total Bilirubin 0.3 mg/dL 0.1-1.3 Alkaline Phosphatase 51 U/L 24-140 Alt 16 U/L 3-42 Ast 19 U/L 8-42 Anion Gap 9 mmol/L 5-15 6 Female Egfr 109 >60 7 Male Egfr 120 >60 8 Drug Abuse 20 11/21/2018 [facility] Urine Amphetamine Negative ng/mL 9 Urine Urine Barbiturates Negative ng/mL 10 Urine Benzodiazepines Negative ng/mL 11 Urine Cocaine Negative ng/mL 12 Urine Phencyclidine Negative ng/mL Cutoff: 25 Urine Tetrahydrocannabinol Negative ng/mL Cutoff: 50 13 Creatinine, Urine 96.1 mg/dL Specific [place] 1.014 pH 5.7 Oxidants Negative 14 Adulterants Comment Normal Codeine, Ur Not Detected ng/mL Cutoff: 25 15 Pjcxyho-1-asgt-glucuronide, Ur Not Detected ng/mL 16 Morphine, Ur Not Detected ng/mL Cutoff: 25 17 Rzdckwkp-7-rvhq-glucuronide, U Not Detected ng/mL 18 6-monoacetylmorphine, Ur Not Detected ng/mL Cutoff: 25 19 Hydrocodone, Ur Not Detected ng/mL Cutoff: 25 20 Norhydrocodone, Ur Not Detected ng/mL Cutoff: 25 21 Dihydrocodeine, Ur Not Detected ng/mL Cutoff: 25 22 Hydromorphone, Ur Not Detected ng/mL Cutoff: 25 23 Hmenewjrcjwuv6lzlzjrbpsohrnwo Not Detected ng/mL 24 Oxycodone, Ur Not Detected ng/mL Cutoff: 25 25 Noroxycodone, Ur Not Detected ng/mL Cutoff: 25 26 Oxymorphone, Ur Not Detected ng/mL Cutoff: 25 27 Agaaxdmztan-8-xaxf-glucuronide Not Detected ng/mL 28 Noroxymorphone, Ur Not Detected ng/mL Cutoff: 25 29 Fentanyl, Ur Not Detected ng/mL Cutoff: 2 30 Norfentanyl, Ur Not Detected ng/mL Cutoff: 2 31 Meperidine, Ur Not Detected ng/mL Cutoff: 25 32 Normeperidine, Ur Not Detected ng/mL Cutoff: 25 33 Naloxone, Ur Not Detected ng/mL Cutoff: 25 34 Lydknrdr-0-rsqd-glucuronide, U Not Detected ng/mL 35 Methadone, Ur Not Detected ng/mL Cutoff: 25 36 Eddp, Ur Not Detected ng/mL Cutoff: 25 37 Propoxyphene, Ur Not Detected ng/mL Cutoff: 25 38 Norpropoxyphene, Ur Not Detected ng/mL Cutoff: 25 39 Tramadol, Ur Not Detected ng/mL Cutoff: 25 40 O-desmethyltramadol, Ur Not Detected ng/mL Cutoff: 25 41 Tapentadol, Ur Not Detected ng/mL Cutoff: 25 42 N-desmethyltapentadol, Ur Not Detected ng/mL Cutoff: 50 43 Gutjvwlwmu-rthb-kbkcqlhralo, U Not Detected ng/mL 44 Buprenorphine, Ur Not Detected ng/mL Cutoff: 5 45 Norbuprenorphine, Ur Not Detected ng/mL Cutoff: 5 46 Norbuprenorphine glucuronide Not Detected ng/mL Cutoff: 20 47 Opioid Interpretation See Comment 48 1 Dietary Aid: [id number] 2 This sample is drawn by:SS/DIRECTOR LABOR STANDARDS 3 Updated reference range on new analyzer 4 Updated reference range on new analyzer 5 Updated reference range 07-03-2018 6 Updated Reference Range 7 Concerning GFR Guidelines for Americans: Normal function or mild renal disease, if clinically at risk: >/= 60 mL/min Moderately decreased: 30-59 Severely decreased: 15-29 Renal failure: <15 There is reduced accuracy above 60ml/min/1.73 m squared, but the numeric value may be clinically useful in the near 60 range 8 Concerning GFR Guidelines: Normal function or [...] that are excreted by the kidneys. 9 REFERENCE VALUE Cutoff: 500 10 REFERENCE VALUE Cutoff: 200 11 REFERENCE VALUE Cutoff: 100 12 REFERENCE VALUE Cutoff: 150 13 ADDITIONAL INFORMATION This report is intended for use in clinical monitoring or management of patients. It is not intended for use in employment-related testing. Test Performed by: [facility] [employer] [facility] [address] [place] [address] Firesetter: Clive Orellana M.D. Ph.D.; [facility]# [id number] 14 REFERENCE VALUE Cutoff: 200 mg/L 15 Tylenol 3 16 Metabolite of codeine REFERENCE VALUE Cutoff: 100 17 Anju Marte, MS Contin; Also a minor metabolite (10%) of codeine and can be seen in low concentrations (<2,000 ng/mL) with poppy seed ingestion. 18 Metabolite of morphine REFERENCE VALUE Cutoff: 100 19 Metabolite of heroin 20 Lortab, [place], Vicodin; Also a very minor metabolite of codeine and impurity (<1%) of oxycodone. 21 Metabolite of hydrocodone 22 Metabolite of hydrocodone 23 Dilaudid, Exalgo; Also a metabolite of hydrocodone and a minor (<5%) metabolite of morphine. 24 Metabolite of hydromorphone REFERENCE VALUE Cutoff: 100 25 Endocet, Percocet, Oxycontin 26 Metabolite of oxycodone 27 Numorphan, Opana; Also a metabolite of oxycodone. 28 Metabolite of oxymorphone REFERENCE VALUE Cutoff: 100 29 Metabolite of oxymorphone 30 Actiq, Duragesic, [place]ent[place] 31 Metabolite of fentanyl 32 Demerol 33 Metabolite of meperidine 34 Narcan 35 Metabolite of naloxone REFERENCE VALUE Cutoff: 100 36 Dolophine 37 Metabolite of methadone 38 Darvon, Darvocet 39 Metabolite of propoxyphene 40 Tradol, Ultram, Ultracet 41 Metabolite of tramadol 42 Nucynta 43 Metabolite of tapentadol 44 Metabolite of tapentadol REFERENCE VALUE Cutoff: 100 45 Buprenex, Suboxone 46 Metabolite of buprenorphine 47 Metabolite of buprenorphine 48 No opioids were detected. The absence of expected drug(s) and/or drug metabolite(s) may indicate non-compliance, altered pharmacokinetics, inappropriate timing of specimen collection relative to drug administration, diluted/adulterated urine, or limitations of testing. ADDITIONAL INFORMATION This test was developed and its performance characteristics determined by [facility] in a manner consistent with CLIA requirements. This test has not been cleared or approved by the U.S. Food and Drug Administration. Procedures Date Code Description Status 03/27/2019 68750 Measure Blood Oxygen Level Single Determination Completed 03/17/2019 68034 Admin Patient Focused Health Risk Assessment Instrument Completed 03/31/2016 [id number] Mammogram Completed Medical Devices Description No Information Available Encounters Type Date Location Provider Dx Diagnosis Office Visit 03/17/2019 Nicolás Ramirez, J01.00 Acute maxillary 9:30a N.P. sinusitis, unspecified H66.92 Otitis media, unspecified, LEFT ear Office Visit 12/19/2018 10:45a Nicolás Ramirez, N.P. R53.83 Other fatigue M54.2 Cervicalgia R20.8 Other disturbances of skin sensation Z28.21 Immunization not carried out because of patient refusal E03.9 Hypothyroidism, unspecified Assessments Date Code Description Provider 03/27/2019 J06.9 Acute upper respiratory infection, Nicolás Rios, N.P. unspecified 03/17/2019 J01.00 Acute maxillary sinusitis, unspecified Nicolás Rios N.P. 03/17/2019 H66.92 Otitis media, unspecified, LEFT ear Nicolás Rios N.P. 12/19/2018 R53.83 Other fatigue Nicolás Rios N.P. 12/19/2018 M54.2 Cervicalgia Nicolás Rios N.P. 12/19/2018 R20.8 Other disturbances of skin sensation Nicolás Rios N.P. 12/19/2018 Z28.21 Immunization not carried out because of Nicolás Rios N.P. patient refusal 12/19/2018 E03.9 Hypothyroidism, unspecified Nicolás Rios N.P. 12/19/2018 E03.9 Hypothyroidism, unspecified [facility] 12/19/2018 R53.83 Other fatigue [facility] Plan of Treatment 03/27/2019 - Nicolás Rios N.P.J06.9 Acute upper respiratory infection, unspecifiedComments:rest, fluids, tylenol prn tamiflu prudent given flu exposureAllNew Medication:Oseltamivir Phosphate 75 mg - 1 by mouth bid x 5 days Functional Status Description No Information Available Mental Status Description No Information Available Referrals Description No Information Available
[2019-05-30 10:57] VITALS: BP 128/69
--- NOTE | 2019-05-30 11:02 | UC ---
Ear Complaint HPI - HPI Summary HPI Summary: 48-year-old female with a left sided earache over the past 3 days. She states this morning she had some drainage out of it. She does have chronic ear problems but has not had an ear infection for several months. She denies any fever or chills. She denies any cold symptoms recently. - History of Current Complaint Chief Complaint: UCEar Stated Complaint: LEFT EAR Time Seen by Provider: 05/30/19 10:54 Hx Obtained From: Patient ?: No Onset/Duration: Gradual Onset Severity Initially: Mild Severity Currently: Mild - The patient describes the pain as intermittent, sharp and shooting. Pain Intensity: 6 Aggravating Factors: Nothing Alleviating Factors: Nothing Associated Signs/Symptoms: Positive: Discharge - Patient states she had some drainage from her ear today. - Allergies/Home Medications Allergies/Adverse Reactions: Allergies Allergy/AdvReac Type Severity Reaction Status Date / Time bee venom protein (honey bee) Allergy Severe Anaphylatic Verified 05/30/19 10:51 Shock morphine Allergy Intermediate Nausea And Verified 05/30/19 10:51 Vomiting Home Medications: Home Medications Ketorolac TAB * [Toradol TAB *] 10 mg PO Q8HR PRN #15 tab 06/30/17 [Rx Confirmed 05/30/19] Butalb/Acetamin/Caff TAB* [Fioricet TAB*] 1 tab PO Q6H PRN 09/13/17 [History Confirmed 05/30/19] Ondansetron HCl [Zofran 4 MG TAB] 4 mg PO Q4H PRN 09/13/17 [History Confirmed ] Atorvastatin* [Lipitor 10 MG*] 10 mg PO DAILY 07/01/18 [History Confirmed ] Levothyroxine TAB* [Synthroid 25 MCG TAB*] 75 mcg PO DAILY 07/01/18 [History Confirmed 05/30/19] Hydrocodone/Acetaminophen [Hydrocodone-Acetamin 5-325 mg] 1 - 2 tab PO Q4H PRN 07/07/18 [History Confirmed 05/30/19] Conjugated Estrogens TAB* [Premarin TAB*] 0.625 mg PO DAILY 08/02/18 [History Confirmed 05/30/19] Fluticasone NASAL SPRAY 50MCG* [Flonase NASAL SPRAY 50MCG*] 2 spray BOTH NARES DAILY 7 Days #1 btl 03/27/20 [Rx] PMH/Surg Hx/FS Hx/Imm Hx Previously Healthy: Yes Endocrine History: Thyroid Disease Neurological History: Migraine Other History Of: Negative For: HIV, Hepatitis B, Hepatitis C, Anticoagulant Therapy - Surgical History Surgical History: Yes Surgery Procedure, Year, and Place: Hysterectomy 2006; CYSTECTOMIES PRIOR TO HYSTERECTOMY; C SECTION;. MANY FEMALE SURGERIES PRIOR TO HYSTERECTOMY. 09/15 LEFT FOOT TARSAL TUNNEL SURGERY;. trial dorsal column stimulator - Family History Known Family History: Positive: Cardiac Disease, Hypertension, Diabetes Negative: Respiratory Disease - no asthma - Social History Alcohol Use: None Substance Use Type: None Substance Use Comment - Amount & Last Used: hydrocodone Smoking Status (MU): Former Smoker Type: Cigarettes Amount Used/How Often: 1 PACK/DAY Length of Time of Smoking/Using Tobacco: >1 PPD x 25 Years Have You Smoked in the Last Year: No When Did the Patient Quit Smoking/Using Tobacco: 10/10/12 - Immunization History Vaccination Up to Date: Yes Review of Systems All Other Systems Reviewed And Are Negative: Yes ENT: Positive: Ear Ache - Left-sided earache, described as sharp and shooting which radiates into the left side of her neck. Is Patient Immunocompromised?: No Physical Exam Triage Information Reviewed: Yes Appearance: Well-Appearing, No Pain Distress, Well-Nourished Vital Signs: Initial Vital Signs Temp 97.6 F 05/30/19 10:52 Pulse 75 05/30/19 10:52 Resp 16 05/30/19 10:52 BP 128/69 05/30/19 10:52 Pulse Ox 100 05/30/19 10:52 Vital Signs Reviewed: Yes Eyes: Positive: Conjunctiva Clear ENT: Positive: Pharynx normal, TMs normal, Uvula midline. Negative: Sinus tenderness Neck exam: Normal Neck: Positive: Supple, Nontender, No Lymphadenopathy Respiratory: Positive: Lungs clear, Normal breath sounds, No respiratory distress, No accessory muscle use Cardiovascular: Positive: RRR, No Murmur, Pulses Normal, Brisk Capillary Refill Musculoskeletal Exam: Normal Neurological Exam: Normal Psychological Exam: Normal Skin Exam: Normal Ear Complaint Course/Dx - Course Course Of Treatment: Patient is comfortable here. I frankly do not see any kind of an ear infection or the need for antibiotics. Because the patient has a history of ear infections, she prefers to follow-up with Dr. Marcus who she has seen in the past with her son. We are going to try a course of Flonase to see if that helps. She stated that she does have a history of seasonal allergies. She is to be rechecked if the pain worsens or if it becomes continuous. - Differential Dx/Diagnosis Provider Diagnosis: Otalgia of left ear Discharge ED - Sign-Out/Discharge Documenting (check all that apply): Patient Departure All imaging exams completed and their final reports reviewed: No Studies - Discharge Plan Condition: Good Disposition: HOME Prescriptions: Fluticasone NASAL SPRAY 50MCG* [Flonase NASAL SPRAY 50MCG*] 2 spray BOTH NARES DAILY 7 Days #1 btl Patient Education Materials: Earache (ED) Referrals: Nicolás Rios NP [Primary Care Provider] - Additional Instructions: May take Tylenol every 4 hours and alternate with ibuprofen every 8 hours for pain. Follow-up with your ear nose and throat physician in 3 or 4 days if continued pain. - Billing Disposition and Condition Condition: GOOD Disposition: Home
== END 2019-05-30 11:21 | disposition home or self-care (01) ==
LOC: UCCORT 10:15
DX: H92.02 Otalgia, left ear (principal); H92.12 Otorrhea, left ear; E07.9 Disorder of thyroid, unspecified; Z79.890 Hormone replacement therapy; Z88.5 Allergy status to narcotic agent; Z91.030 Bee allergy status; Z87.891 Personal history of nicotine dependence
CPT/HCPCS: 99212; G0463